=== PATIENT | female | born 1965 | race Hispanic/Latino ===

== ENCOUNTER 2019-09-02 06:11 | Emergency (ER) | payer OTHER, SELFPAY ==
--- OUTSIDE RECORDS SUMMARY | 2019-09-02 06:15 | XMS REPORT ---
:1965 Author Organization eClinicalWorks Care Team Providers Name Role Phone Kayla Erwin Provider Role Unavailable Allergies No Known Allergies Problems Problem Type Condition Code Onset Dates Condition Status Problem Gastroesophageal reflux disease, K21.9 Active esophagitis presence not specified Problem Diverticulosis K57.90 Active Problem Prediabetes R73.03 Active Problem Gastroparesis K31.84 Active Problem Gallstones K80.20 Active Problem Hypercholesterolemia E78.00 Active Problem Reflux K21.9 Active Problem Abdominal cramping R10.9 Active Problem Acute gastroenteritis K52.9 Active Problem Irritable bowel K58.9 Active Problem Cancer C80.1 Active Medications No Known Medications Results No Known Results Summary Purpose eClinicalWorks Submission
--- OUTSIDE RECORDS SUMMARY | 2019-09-02 06:15 | XMS REPORT ---
:1965 [facility] Address [address] [place] [address] Dr. León [address] [place] [id number] Care Team Providers Name Role Phone Unavailable Unavailable Unavailable Problems This patient has no known problems. Allergies, Adverse Reactions, Alerts This patient has no known allergies or adverse reactions. Medications This patient has no known medications.
--- OUTSIDE RECORDS SUMMARY | 2019-09-02 06:15 | XMS REPORT | Continuity of Care Document ---
:1965 Author Organization [facility] Address [address] [place] [address] Phone Care Team Providers Name Role Phone Gaby Bridges Unavailable Unavailable Allergies, Adverse Reactions, Alerts Substance Reaction Status No Known Allergies Active Medications Medication Instructions Dosage Effective Dates Status Comments (start - stop) mupirocin 2 % apply by topical 0.00 - Active [Pat Resp=20 topical ointment route 3 times every pct;] day a small amount to the affected area Problems Condition Effective Dates (start - stop) Clinical Status Comments No information Procedures Procedure Date No information Results Test Name Date and Time Measure Units Reference Range Abnormal Flag Status Comments No information Advance Directives Directive Yes / No Effective Date File Name No information Encounters Encounter Practice Location Reason(s) Diagnoses Date Provider Providers Description For Visit Copied on Encounter [facility] Aug- Fabio Referring Health & [facility] Gaby. Provider: Wellness, Health & [address] Gaby [address] Shoshana Reyes, Julia Wilson [address] [place], [facility] C, [place] [id number] [facility] C, tel:+ [phone] [place] [id number] . [place], [place], tel:+ [phone] tel:[phone] [facility] Body mass index (BMI) Fabio Referring [facility] & [facility] 26.0-26.9, Gaby. Provider: Wellness, Health & adultOnychomycosisOta [address] Gaby [address] lgiaEncounter for Lobo Mccarthy [address], [facility] [place] [address] [place] [address] [place], [address], [place] [id number] [facility] , [place], [place], [address], tel:+ [phone] [place] [id number] . [place], [place], tel:+ [phone] tel:[phone] [facility] TC Acute upper Feb-2 Health & [place] [facility] [address]-201 Wellness, Health & infection, [address], [place], [place], [id number] , tel:+ [phone] Family History Family Member Diagnosis Age At Onset Family history of Cancer, prostate Family history of Cancer, kidney Immunizations Vaccine Date Status Comments Zoster recombinant subunit, pending Source: New Immunization Record preservative free Payers Payer name Insurance type Covered republican ID Authorization(s) No information Social History Type Description Quantity Date Captured Comments Sex Female Vital Signs Date / Height Weight BMI Pulse Blood Temperature Respiratory Body Head BMI Pulse Inhaled Time: Rate Pressure Rate Surface Circumference percentile Ox Ox Area No information Chief Complaint And Reason For Visit No information Reason For Referral Reason For Referral No information Plan Of Treatment Date Type Action Status Goal Lifestyle education regarding diet completed Referral Ordered: ordered Referrals: Podiatry. Evaluate and treat Unknown Immunization Zoster recombinant subunit, preservative free ordered History Of Present Illness Encounter Date Complaint History Of Present Illness No information Functional Status Date Functional Assessment No information Medications Administered Medication Instructions Dosage Effective Dates (start - stop) Status Comments No information Instructions Date Instruction Additional Information Keep area clean and dry Rx for topical Related to Rash mupirocin ointment prn Shingrix ordered Related to Encounter for immunization pt instructed to take OTC Related to Otalgia antiinflammatories and RTC if the pain worsens compliant with LSMpt instructed to Related to Body mass index ( BMI) reschedule WWE to update pap smear 26.0-26.9, adult pt referred to podiatry for management Related to Onychomycosis of longstanding onychomycosisRx for topical mupirocin ointment to prevent secondary infection Giving encouragement to exercise Related to Body mass index (BMI) 26.0-26.9, adult Lifestyle education regarding diet Related to Body mass index ( BMI) 26.0-26.9, adult Pt instructed to make appt for Related to Acute upper WWEDiscussed safe otc options for respiratory infection, medication, caution with unspecified sleepinessDiscussed w pt risks w unnecessary abx, need to avoid Assessments Type Assessment Date No information Goals Health Concern Goal Type Priority Status Date No information Medical Equipment Description Device [place] Device Identifier Effective Dates (start - stop ) Status No information Mental Status Date Cognitive Assessment No information Health Concerns Observation Date No information Concern Status Date No information
--- OUTSIDE RECORDS SUMMARY | 2019-09-02 06:15 | XMS REPORT ---
:1965 Author Organization eClinicalWorks Care Team Providers Name Role Phone Kayla Erwin Provider Role Unavailable Allergies, Adverse Reactions, Alerts Substance Reaction Event Type Garlic Info Not Available Drug Allergy Problems Problem Type Condition Code Onset Dates Condition Status Problem Gastroesophageal reflux disease, K21.9 Active esophagitis presence not specified Problem Diverticulosis K57.90 Active Problem Prediabetes R73.03 Active Assessment Abdominal cramping R10.9 Active Assessment Acute gastroenteritis K52.9 Active Problem Gastroparesis K31.84 Active Problem Gallstones K80.20 Active Problem Hypercholesterolemia E78.00 Active Problem Reflux K21.9 Active Problem Abdominal cramping R10.9 Active Problem Acute gastroenteritis K52.9 Active Problem Irritable bowel K58.9 Active Problem Cancer C80.1 Active Medications Medication Code Code Instructions Start End Status Dosage System Date Date Dicyclomine HCl [facility] 92446371292 20 MG Orally Jan 31Feb Active 1 tablet Four times a 2018 09, day as needed 2018 for stomach cramping/pain Nexium [facility] [address]-12 Orally as Active 1 capsule directed prn Results No Known Results Summary Purpose eClinicalWorks Submission
--- OUTSIDE RECORDS SUMMARY | 2019-09-02 06:15 | XMS REPORT | Continuity of Care Document ---
:1965 Author Organization [facility] Address [address] [place] [address] Phone Care Team Providers Name Role Phone [...] Status Comments No information Procedures Procedure Date Established Patient Office Visit-Level Four Results Test Name Date and Time Measure Units Reference Range Abnormal Flag Status Comments No information Advance Directives Directive Yes / No Effective Date File Name No information Encounters Encounter Practice Location Reason(s) Diagnoses Date Provider Providers Description For Visit Copied on Encounter Established [facility] TC Ear Body mass index Jun- Fabio Referring Patient [facility] & [facility] complaints (BMI) 26.0-26.9, Gaby. Provider: Office Wellness, Health & (chief adultOnychomycosisOt [address] Gaby Visit-Level [address] Wellness complaint)T algiaEncounter for Lobo Mccarthy, [address], [facility] [place] [address] [place], (Lobo Cohn [place], complaint)[address] [id number] alexis (chief [facility] complaint) [place], [place], [address], tel:+ [phone] [place] [id number] . [place], [place], tel:+ [phone]. [phone] tel:[phone] [facility] Acute upper Feb-2 Health & [place] respiratory 6-201 Wellness, Health & infection, 8 [address], [place], [id number] , tel:[phone] Family History Family Member Diagnosis Age At Onset Family history of Cancer, prostate Family history of Cancer, kidney Immunizations Vaccine Date Status Comments Zoster recombinant subunit, pending Source: New Immunization Record preservative free Payers Payer name Insurance type Covered democrat ID Authorization(s) No information Social History Type Description Quantity Date Captured Comments Alcohol Use Details beer & liquor 2 beers occasionally Caffeine Use coffee 2 cups per day Details Tobacco Use Status Heavy cigarette smoker (20-39 cigs/day) Smoking Status Heavy tobacco smoker Smoking Tobacco Use Cigarette: No Details Available Cigarette: 1 Packs per day Details Sex Female Vital Signs Date / Height Weight BMI Pulse Blood Temperature Respiratory Body Head BMI Pulse Inhaled Time: Rate Pressure Rate Surface Circumference percentile Ox Ox Area 66.00 164.00 26.4 81 117/76 97.1 F 16 /min 1.86 in lbs 7 /min mm[Hg] meter(2) 3:31 kg/m PM eter (2) Chief Complaint And Reason For Visit Most recent encounter only, dated '06/24/2019 15:00'. Ear complaints ( chief complaint). Description: The symptoms began 1 day ago. The symptoms are reported as being moderate. She states the symptoms are acute. Pt states that in the car today she experienced a shooting pain starting from her R tragus to about an inch anterior to that. Pain is associated with swallowing. She denies any ear popping. She denies any prior episodes, but states that she clenches her teeth at night.Toe fungus (chief complaint). Description: The symptoms began 2 years ago. The symptoms are reportedas being moderate. The symptoms occur constantly. The location is bilateral feet, worse on R. She states the symptoms are chronic. Pt states she has had onychomycosis x 2 years. She has tried a prescription lotion, kerasal, and bleach water, and an additional prescription she got from her sister (cannot recall the name). She endorses some swelling over the great toe and intermittent blistering just proximal to the nail. She has been given a 5 day course of abx in the past for an infected blister. Another physician was going to start her on an oral medication but she has not obtained the LFTs yet.Rash (chief complaint). Description: The patient presents for Rash. The symptom(s) are described as moderate and occurs occasionally. Affected area(s) include left thigh. The symptoms are associated with stress. Associated symptoms include painful rash. Additional information: wants vaccinePt states she has had intermittent episodes of shingles, the first being 7 years ago. Outbreaks are associated with stress. The rash appears over the posterior aspect of her L thigh. The current outbreak began 5 days ago and is now scabbing over. She reports associated pain. Reason For Referral Reason For Referral No information Plan Of Treatment Date Type Action Status Goal Lifestyle education regarding diet completed Referral Ordered: ordered Podiatry (related to Onychomycosis) Referral Ordered: ordered Referrals: Podiatry. Evaluate and treat Appointment Brianda Zurita BOOKED Appointment Brianda Zurita BOOKED Unknown Immunization Zoster recombinant subunit, preservative free ordered History Of Present Illness Encounter Date Complaint History Of Present Illness Toe fungus The symptoms began 2 years ago. The symptoms are reported as being moderate. The symptoms occur constantly. The location is bilateral feet, worse on R. She states the symptoms are chronic. Pt states she has had onychomycosis x 2 years. She has tried a prescription lotion, kerasal, and bleach water, and an additional prescription she got from her sister (cannot recall the name). She endorses some swelling over the great toe and intermittent blistering just proximal to the nail. She has been given a 5 day course of abx in the past for an infected blister. Another physician was going to start her on an oral medication but she has not obtained the LFTs yet. Ear complaints The symptoms began 1 day ago. The symptoms are reported as being moderate. She states the symptoms are acute. Pt states that in the car today she experienced a shooting pain starting from her R tragus to about an inch anterior to that. Pain is associated with swallowing. She denies any ear popping. She denies any prior episodes, but states that she clenches her teeth at night. Rash The patient presents for Rash. The symptom(s) are described as moderate and occurs occasionally. Affected area(s) include left thigh. The symptoms are associated with stress. Associated symptoms include painful rash. Additional information: wants vaccinePt states she has had intermittent episodes of shingles, the first being 7 years ago. Outbreaks are associated with stress. The rash appears over the posterior aspect of her L thigh. The current outbreak began 5 days ago and is now scabbing over. She reports associated pain. Functional Status Date Functional Assessment No information [...] need to avoid Assessments Type Assessment Date assessment Body mass index (BMI) 26.0-26.9, adult assessment Onychomycosis impression pt has tried many different topical medications without 2019 success assessment Otalgia assessment Encounter for immunization assessment Rash impression PE unremarkable impression pt has healing rash on posterior leg she believes to be 2019 shingles; PE does not reveal usual presentation for shingles Goals Health Concern Goal Type Priority Status Date No information Medical Equipment Description Device [place] Device Identifier Effective Dates (start - stop ) Status No information Mental Status Date Cognitive Assessment Orientation - Oriented to time, place, person, situation. Health Concerns Observation Date No information Concern Status Date No information
--- OUTSIDE RECORDS SUMMARY | 2019-09-02 06:15 | XMS REPORT ---
:1965 Author Organization eClinicalWorks Care Team Providers Name Role Phone Kelsy Sands Provider Role Unavailable Allergies, Adverse Reactions, Alerts Substance Reaction Event Type Garlic Info Not Available Drug Allergy Problems Problem Type Condition Code Onset Dates Condition Status Problem Gastroesophageal reflux disease, K21.9 Active esophagitis presence not specified Problem Diverticulosis K57.90 Active Problem Prediabetes R73.03 Active Assessment Viral upper respiratory illness J06.9 Active Assessment Cough R05 Active Problem Gastroparesis K31.84 Active Problem Gallstones K80.20 Active Problem Hypercholesterolemia E78.00 Active Problem Reflux K21.9 Active Problem Abdominal cramping R10.9 Active Problem Acute gastroenteritis K52.9 Active Problem Irritable bowel K58.9 Active Problem Cancer C80.1 Active Medications Medication Code Code Instructions Start End Date Status Dosage System Date Bactrim DS [facility] 48762779976 800-160 MG August 17, Active 1 tablet Orally Twice a 2020 day for 10 days Nexium [facility] [address]-12 Orally as Active 1 capsule directed prn Results No Known Results Summary Purpose eClinicalWorks Submission
[2019-09-02 07:13] LABS: Absolute Lymphocytes (CBC) 1.8 K/uL (0.7-4.9); Basophils % 0.5 % (0-1.3); Hematocrit 31.6 % (36.0-45.0); Lymphocytes % 14.2 % (15.3-44.8); MPV 8.6 fL (7.6-11.3); RBC Red Blood Cell Count 3.68 M/uL (3.86-4.86)
[2019-09-02 07:29] LABS: Potassium 3.9 mmol/L (3.5-5.1)
[2019-09-02 07:39] LABS: Urine Bacteria <20 /HPF (<20); Urine Culture Reflex Order REFLEXED
--- NOTE | 2019-09-02 08:06 | RAD REPORT ---
EXAM DESCRIPTION: CT - Abdomen Pelvis W Contrast - 09/02/2019 7:53 am CLINICAL HISTORY: Abdominal pain COMPARISON: none. TECHNIQUE: Computed axial tomography of the abdomen pelvis was obtained. 100 cc Isovue-300 was admin istered intravenously. Oral contrast was not requested which limits evaluation of bowel. All CT scans are performed using dose optimization technique as appropriate and may include automated exposure control or mA/KV adjustment according to patient size. FINDINGS: The liver, spleen, pancreas, adrenal and right kidney appear unremarkable. 4 centimeter low to intermediate density area present within the upper pole left kidney reaching the periphery. This likely represents pyelonephritis. Cholecystectomy Hysterectomy There is no evidence of diverticulitis. Small hiatal hernia IMPRESSION: Mild to moderate left pyelonephritis
--- NOTE | 2019-09-02 08:17 | ER ---
Nurse's Notes [facility] Name: Brianda Zurita Age: 54 yrs Sex: Female : 1965 Arrival Date: 09/02/2019 Time: 06:15 Bed 17 Private MD: Diagnosis: Acute tubulo-interstitial nephritis Presentation: 09/01 06:34 Chief complaint: Patient states: i think i have kidney infection. i have abdominal mg2 pain, loss of appetite, nausea for 2 weeks. i was tested for covid 19 last and it came out negative. i was already treated with bactrim but im not improving. i also have fever yesterday 100.7. 06:34 Method Of Arrival: Ambulatory mg2 06:36 Coronavirus screen: Patient denies a cough. Patient denies shortness of breath or mg2 difficulty breathing. Patient reports a measured and/or subjective temperature greater than 100.4F. Patient denies travel on a cruise ship or to a country the [facility] currently lists as an affected area. Ebola Screen: No symptoms or risks identified at this time. Initial Sepsis Screen: Does the patient meet any 2 criteria? No. Patient's initial sepsis screen is negative. Does the patient have a suspected source of infection? No. Patient's initial sepsis screen is negative. Risk Assessment: Do you want to hurt yourself or someone else? Patient reports no desire to harm self or others. 06:36 Acuity: MUSHTAQ 3 mg2 06:52 Onset of symptoms was August 2019. 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 - Social history:: Smoking status: Patient denies any tobacco usage or history of. Patient/guardian denies using alcohol, street drugs, IV drugs. Screenin:52 Abuse screen: Denies threats or abuse. Denies injuries from another. Nutritional mg2 screening: No deficits noted. Tuberculosis screening: No symptoms or risk factors identified. Fall Risk IV access (20 points). Assessment: 06:50 General: Appears in no apparent distress. comfortable, Behavior is calm, appropriate mg2 for age. Pain: Complains of pain in abdomen Pain currently is 7 out of 10 on a pain scale. Quality of pain is described as aching, Pain began gradually, 2 weeks now. Neuro: Level of Consciousness is awake, alert, obeys commands, Oriented to person, place, time, situation. Cardiovascular: Capillary refill < 3 seconds Patient's skin is warm and dry. Respiratory: Airway is patent Respiratory effort is even, unlabored, Respiratory pattern is regular, symmetrical. GI: Reports lower abdominal pain, nausea, loss of appetite. : No signs and/or symptoms were reported regarding the genitourinary system. EENT: No signs and/or symptoms were reported regarding the EENT system. Derm: Skin is intact, is healthy with good turgor, Skin is pink, warm \T\ dry. normal. Musculoskeletal: Circulation, motion, and sensation intact. Capillary refill < 3 seconds. 07:15 General: Appears in no apparent distress. comfortable, Behavior is calm, cooperative. rb1 Pain: Complains of pain in abdomen Pain currently is 7 out of 10 on a pain scale. Neuro: Level of Consciousness is awake, alert, obeys commands, Oriented to person, place, time, situation. Cardiovascular: Capillary refill < 3 seconds is brisk in bilateral fingers. Respiratory: Airway is patent Respiratory effort is even, unlabored, Respiratory pattern is regular, symmetrical. Derm: Skin is pink, warm \T\ dry. 08:15 Reassessment: Patient appears in no apparent distress at this time. Pt. is on her rb1 telephone. 08:33 Reassessment: Discharge pending due to shot time. rb1 08:54 Reassessment: Patient appears in no apparent distress at this time. Patient and/or rb1 family updated on plan of care and expected duration. Pain level reassessed. Patient is alert, oriented x 3, equal unlabored respirations, skin warm/dry/pink. no adverse reaction noted at this time. Vital Signs: 06:36 BP 136 / 79; Pulse 94; Resp 18; Temp 97.7; Pulse Ox 100% on R/A; Weight 68.04 kg; mg2 Height 5 ft. 6 in. (167.64 cm); Pain 7/10; 07:35 BP 95 / 62; Pulse 64; Resp 17; Pulse Ox 96% on R/A; rb1 08:35 BP 111 / 69; Pulse 73; Resp 16; Pulse Ox 100% on R/A; rb1 06:36 Body Mass Index 24.21 (68.04 kg, 167.64 cm) mg2 ED Course: 06:15 Patient arrived in ED. ds1 06:17 [facility] Mad[facility] kb 06:17 Nba Yanes MD is Attending Physician. kb 06:19 Mckay Cagle, RN is Primary Nurse. mg2 06:38 Triage completed. mg2 06:38 Arm band placed on. mg2 06:52 Patient has correct armband on for positive identification. Pulse ox on. NIBP on. Door mg2 closed. Warm blanket given. 06:52 No provider procedures requiring assistance completed. Inserted saline lock: 20 gauge mg2 in left antecubital area, using aseptic technique. Blood collected. 07:54 CT Abd/Pelvis - IV Contrast Only In Process Unspecified. EDMS 08:55 IV discontinued, intact, bleeding controlled, No redness/swelling at site. Pressure rb1 dressing applied. Administered Medications: 08:16 CANCELLED (Duplicate Order): Rocephin 1 grams IV at calculated rate once; Given slow IV kb push per pharmacy instructions 08:22 Drug: Rocephin 1 grams Route: IV; Rate: calculated rate; Site: left antecubital; rb1 08:46 Follow up: Response: No adverse reaction; IV Status: Completed infusion rb1 Outcome: 08:17 Discharge ordered by . kb 08:55 Discharged to home ambulatory. rb1 08:55 Condition: stable 08:55 Discharge instructions given to patient, Instructed on discharge instructions, follow up and referral plans. medication usage, Demonstrated understanding of instructions, follow-up care, medications, Prescriptions given X 1. 08:56 Patient left the ED. rb1 Signatures: Dispatcher [employer] EDMS Clau Madera FNP-C [facility]-Wendy Harris ds1 Colleen Shoemaker, RN RN rb1 Mckay Cagle, NUVIA RN mg2 Corrections: (The following items were deleted from the chart) 06:39 06:34 Chief complaint: Patient states: i think i have kidney infection. i have mg2 abdominal pain, loss of appetite, nausea for 2 weeks. i was tested for covid 19 last and it came out negative. i was already treated with bactrim but im not improving. mg2 06:39 06:36 Coronavirus screen: Patient denies a cough. Patient denies shortness of breath or mg2 difficulty breathing. Patient reports a measured and/or subjective temperature greater than 100.4F. Patient denies travel on a cruise ship or to a country the [facility] currently lists as an affected area. mg2
--- NOTE | 2019-09-02 08:18 | EDPHYS ---
Physician Documentation [facility] Name: Brianda Zurita Age: 54 yrs Sex: Female : 1965 Arrival Date: 09/02/2019 Time: 06:15 Bed 17 Private MD: ED Physician Nba Yanes HPI: 09/01 06:56 This 54 yrs old Female presents to ER via Ambulatory with complaints of Fever, kb Body Aches. 06:56 The patient or guardian reports cough, that is intermittent, described as mild, flu kb symptoms, low-grade fever, myalgias, no appetite. Onset: The symptoms/episode began/occurred 3 week(s) ago. Severity of symptoms: At their worst the symptoms were mild, moderate, in the emergency department the symptoms are unchanged. Modifying factors: The symptoms are alleviated by nothing, the symptoms are aggravated by nothing. Associated signs and symptoms: Pertinent positives: fever, Pertinent negatives: chest pain, diarrhea, ear ache, nausea, rhinorrhea, sore throat, vomiting. The patient has not experienced similar symptoms in the past. The patient has been recently seen by a physician:. Pt reports she has had body aches, decreased appetite, fever, slight cough (not out of normal for her), suprapubic pain for 3 weeks. Completed a course of bactrim at the beginning for UTI, but never got better. Was seen by Dr Erwin and tested negative for flu and COVID, but still not feeling well. . HIDE PASTER: 06:53 LMP N/A - Hysterectomy mg2 Historical: - Allergies: 06:40 No Known Allergies; mg2 - Home Meds: 06:40 Nexium Oral [Active]; mg2 - PMHx: 06:40 GERD; uterine ca; mg2 - PSHx: 06:40 Cholecystectomy; Hysterectomy; mg2 - Immunization history:: Flu vaccine is up to date. - Social history:: Smoking status: Patient denies any tobacco usage or history of. Patient/guardian denies using alcohol, street drugs, IV drugs. ROS: 06:53 ENT: Negative for injury, pain, and discharge, Neck: Negative for injury, pain, and kb swelling, Cardiovascular: Negative for chest pain, palpitations, and edema, Back: Negative for injury and pain, MS/Extremity: Negative for injury and deformity, Skin: Negative for injury, rash, and discoloration, Neuro: Negative for headache, weakness, numbness, tingling, and seizure. 06:53 Constitutional: Positive for body aches, chills, fatigue, fever, malaise, Negative for poor PO intake, weight loss. 06:53 Respiratory: Positive for cough, Negative for dyspnea on exertion, hemoptysis, orthopnea, pleurisy, shortness of breath, sputum production, wheezing. 06:53 Abdomen/GI: Positive for abdominal pain, Negative for nausea, vomiting, and diarrhea, constipation, abdominal cramps, abdominal distension, anorexia. Exam: 06:55 Constitutional: This is a well developed, well nourished patient who is awake, alert, kb and in no acute distress. Head/Face: Normocephalic, atraumatic. ENT: Nares patent. No nasal discharge, no septal abnormalities noted. Tympanic membranes are normal and external auditory canals are clear. Oropharynx with no redness, swelling, or masses, exudates, or evidence of obstruction, uvula midline. Mucous membranes moist. Neck: Trachea midline, no thyromegaly or masses palpated, and no cervical lymphadenopathy. Supple, full range of motion without nuchal rigidity, or vertebral point tenderness. No Meningismus. Chest/axilla: Normal chest wall appearance and motion. Nontender with no deformity. No lesions are appreciated. Cardiovascular: Regular rate and rhythm with a normal S1 and S2. No gallops, murmurs, or rubs. Normal PMI, no JVD. No pulse deficits. Respiratory: Lungs have equal breath sounds bilaterally, clear to auscultation and percussion. No rales, rhonchi or wheezes noted. No increased work of breathing, no retractions or nasal flaring. Abdomen/GI: Soft, non-tender, with normal bowel sounds. No distension or tympany. No guarding or rebound. No evidence of tenderness throughout. Back: No spinal tenderness. No costovertebral tenderness. Full range of motion. Skin: Warm, dry with normal turgor. Normal color with no rashes, no lesions, and no evidence of cellulitis. MS/ Extremity: Pulses equal, no cyanosis. Neurovascular intact. Full, normal range of motion. Neuro: Awake and alert, GCS 15, oriented to person, place, time, and situation. Cranial nerves II-XII grossly intact. Motor strength 5/5 in all extremities. Sensory grossly intact. Cerebellar exam normal. Normal gait. Vital Signs: 06:36 BP 136 / 79; Pulse 94; Resp 18; Temp 97.7; Pulse Ox 100% on R/A; Weight 68.04 kg; mg2 Height 5 ft. 6 in. (167.64 cm); Pain 7/10; 07:35 BP 95 / 62; Pulse 64; Resp 17; Pulse Ox 96% on R/A; rb1 08:35 BP 111 / 69; Pulse 73; Resp 16; Pulse Ox 100% on R/A; rb1 06:36 Body Mass Index 24.21 (68.04 kg, 167.64 cm) mg2 MDM: 06:19 Patient medically screened. kb 06:53 Data reviewed: vital signs, nurses notes. Data interpreted: Pulse oximetry: on room air kb is 100 %. Interpretation: normal. 08:16 Counseling: I had a detailed discussion with the patient and/or guardian regarding: the kb historical points, exam findings, and any diagnostic results supporting the discharge/admit diagnosis, lab results, radiology results, the need for outpatient follow up, a family practitioner, to return to the emergency department if symptoms worsen or persist or if there are any questions or concerns that arise at home. 09/01 06:32 Order name: Flu; Complete Time: 07:33 kb 09/01 06:32 Order name: Basic Metabolic Panel; Complete Time: 07:33 kb 09/01 06:32 Order name: CBC with Diff; Complete Time: 07:25 kb 09/01 06:32 Order name: [place] Screen Profile; Complete Time: 07:28 kb 09/01 06:32 Order name: Urine Microscopic Only; Complete Time: 07:41 kb 09/01 06:33 Order name: Urine Dipstick--Ancillary (enter results) mw2 09/01 06:32 Order name: IV Saline Lock; Complete Time: 06:50 kb 09/01 06:32 Order name: Labs collected and sent; Complete Time: 06:50 kb 09/01 07:34 Order name: CT Abd/Pelvis - IV Contrast Only; Complete Time: 08:15 kb 09/01 07:41 Order name: Urine Culture EDMS Administered Medications: 08:16 CANCELLED (Duplicate Order): Rocephin 1 grams IV at calculated rate once; Given slow IV kb push per pharmacy instructions 08:22 Drug: Rocephin 1 grams Route: IV; Rate: calculated rate; Site: left antecubital; rb1 08:46 Follow up: Response: No adverse reaction; IV Status: Completed infusion rb1 Disposition: 09/02 05:01 Co-signature as Attending Physician, Nba Yanes MD I agree with the assessment and tw4 plan of care. Disposition: 09/02/19 08:17 Discharged to Home. Impression: Acute tubulo-interstitial nephritis. - Condition is Stable. - Discharge Instructions: Pyelonephritis, Adult, [id number]. - Prescriptions for cefpodoxime 200 mg Oral Tablet - take 1 tablet by ORAL route every 12 hours for 10 days with food; 20 tablet. - Medication Reconciliation Form, Thank You Letter, Antibiotic Education, Prescription Opioid Use form. - Follow up: Emergency Department; When: As needed; Reason: Worsening of condition. Follow up: Private Physician; When: 2 - 3 days; Reason: Recheck today's complaints, Continuance of care, Re-evaluation by your physician. Signatures: Dispatcher [employer] EDClau De Jesus, NET SOFTWARE ARCHITECT-C NET SOFTWARE ARCHITECT-CkColleen Ye, RN RN rb1 Nba Yanes MD MD tw4 Mckay Cagle RN RN mg2 Corrections: (The following items were deleted from the chart) 09/01 08:16 08:16 Rocephin 1 grams IV at calculated rate once; Given slow IV push per pharmacy kb instructions ordered. kb 08:56 08:17 09/02/2019 08:17 Discharged to Home. Impression: Acute tubulo-interstitial rb1 nephritis. Condition is Stable. Forms are Medication Reconciliation Form, Thank You Letter, Antibiotic Education, Prescription Opioid Use. Follow up: Emergency Department; When: As needed; Reason: Worsening of condition. Follow up: Private Physician; When: 2 - 3 days; Reason: Recheck today's complaints, Continuance of care, Re-evaluation by your physician. kb
[2019-09-02] MEDS ORDERED: CEFTRIAXONE/SWI 1gm 1 GM/10 ML SYR ONE (08:28)
[2019-09-02 09:01] VITALS: TEMP 97.7
[2019-09-02 09:06] VITALS: BP 111/69; O2SAT 100
[2019-09-02 12:54] LABS: Urine Blood 2+ (NEG); Urine Glucose NEGATIVE (NEG); Urine Protein NEGATIVE (NEG)
== END 2019-09-02 08:56 | disposition home or self-care (01) ==
LOC: ER 06:11
DX: N10 Acute pyelonephritis (principal); K21.9 Gastro-esophageal reflux disease without esophagitis
CPT/HCPCS: 36415; 74177; 80048; 81003; 81015; 85025; 86308; 87086; 87088; 87804; 96365; 99284; J0696; Q9967

== ENCOUNTER 2024-01-13 16:48 | Emergency (ER) | payer BC ==
--- OUTSIDE RECORDS SUMMARY | 2024-01-13 16:53 | XMS REPORT | Continuity of Care Document ---
Author Name Unknown Address [address] [facility] [address] [place] [address] [facility] Address [address] [facility] [address] [place] [address] Care Team Providers Care Clerk Operator Name Role Phone Siva Salcido. Primary Care Physici an Unavailable Kayla Hardin Attending Clinician Unavaila April Dunne Attending Clinician Unavailable Ludin Joe) Attending Clinician Unavaila RONEL Nava Attending Clinician UnaADRIANNE Jefferson Attending Clinician Unavailable LAURA PLASCENCIA Attending Clinician Unavailab lizzie GC_BCSS_Heath_Sandee Attending Clinician Unavaila Alma Duron Attending Clinician Unavailable GC_BVWC_Sedrick Attending Clinician Unavailable DON JOSHI Attending Clinician Unavailabl e LAB90 Attending Clinician Unavailable Shaista ZHAO, Ronel Bullock Attending Clinician [phone] Arnie Smith Attending Clinician Unavailable Gaby Mccarthy Attending Clinician Unavailable April Acosta Admitting Clinician Unavailable Ludin Joe) Admitting Clinician Unavaila mustapha GC_BCSS_Heath_Dan1 Admitting Clinician Unavaila mustapha GC_BVWC_[facility]_J Admitting Clinician Unavailable Payers Payer Name Policy Type Policy Number Effective Date Expirati on Date Source [place] 4 [id number] 2022 00:00[place] [id number] 2022 00:00:00 PHCS-IMAGINE 360 2 [id number] 2022 00:00:00 [place] [place]UE[place] - OPEN ACCESS [id number] 2022 00:00:00 2022 00:00:00 MULTIPLAN-GPA/PPO 2 [id number] 2021 00:00:00 Problems Condition Name Condition Details Condition Category Status Onset Date Resolution Date Last Treatment Date Treating Clinician Comments Source Abdominal pain Abdominal Pain Problem Active 10-15 00:00: 00 [facility] Vesicocoli c fistula Vesicocoli c Fistula Problem Active 10-15 00:00: 00 [facility] Hyperchole sterolemia Hyperchole sterolemia Problem Active [facility] Irritable bowel Irritable bowel Problem Active [facility] Cancer Cancer Problem Active [facility] Reflux Reflux Problem Active [facility] Diverticul osis Diverticul osis Problem Active [facility] Prediabete s Prediabete s Problem Active [facility] Abdominal cramping Abdominal cramping Problem Active [facility] Acute gastroente ritis Acute gastroente ritis Problem Active [facility] Gastropare sis Gastropare sis Problem Active [facility] Gallstones Gallstones Problem Active [facility] Allergies, Adverse Reactions, Alerts Allergy Name Allergy Type Status Severity Reaction(s) Onset Date Inactive Date Treating Clinician Comments Source Garlic Adverse Reaction Active Info Not Available [facility] Social History Social Habit Start Date Stop Date Quantity Comments Source Sex Assigned At 1965 00:00:00 1965 00:00:00 Female Salima [facility] Smoking Status Start Date Stop Date Source Unknown if ever smoked Marlena on [facility] Medications Ordered Medication Name Filled Medication Name Start Date Stop Date Current Medication? Ordering Clinician Indication Dosage Frequency Signature (SIG) Comments Components Source Bactrim DS Bactrim DS 3-16 00:00: 00 Yes Kelsy Sands 1 tablet [facility] ciprofloxac in 500 mg tablet TAKE 1 TABLET BY MOUTH TWICE DAILY ciprofloxac in 500 mg tablet TAKE 1 TABLET BY MOUTH TWICE DAILY No ciprofloxa josé miguel 500 mg tablet TAKE 1 TABLET BY MOUTH TWICE DAILY [facility] diclofenac 1 % topical gel diclofenac 1 % topical gel No diclofenac 1 % topical gel [facility] diclofenac sodium 75 mg tablet,tristen yed release diclofenac sodium 75 mg tablet,tristen yed release No diclofenac sodium 75 mg tablet,del ayed release [facility] methylpredn isolone 4 mg tablets in a dose pack FOLLOW PACKAGE DIRECTIONS methylpredn isolone 4 mg tablets in a dose pack FOLLOW PACKAGE DIRECTIONS No methylpred nisolone 4 mg tablets in a dose pack FOLLOW PACKAGE DIRECTIONS [facility] ondansetron HCl 4 mg tablet ondansetron HCl 4 mg tablet No ondansetro n HCl 4 mg tablet [facility] phenazopyri dine 200 mg tablet TAKE 1 TABLET BY MOUTH EVERY 8 HOURS NEEDED FOR URINARY PROBLEMS FOR 3 DAYS phenazopyri dine 200 mg tablet TAKE 1 TABLET BY MOUTH EVERY 8 HOURS NEEDED FOR URINARY PROBLEMS FOR 3 DAYS No phenazopyr idine 200 mg tablet TAKE 1 TABLET BY MOUTH EVERY 8 HOURS NEEDED FOR URINARY PROBLEMS FOR 3 DAYS [facility] sulfamethox azole 800 mg-trimetho prim 160 mg tablet TAKE 1 TABLET BY MOUTH EVERY DAY BEFORE INTERCOURSE sulfamethox azole 800 mg-trimetho prim 160 mg tablet TAKE 1 TABLET BY MOUTH EVERY DAY BEFORE INTERCOURSE No sulfametho xazole 800 mg-trimeth oprim 160 mg tablet TAKE 1 TABLET BY MOUTH EVERY DAY BEFORE INTERCOURS E [facility] albuterol sulfate HFA 90 mcg/actuati on aerosol inhaler INHALE 2 PUFFS INTO THE LUNGS EVERY 4 HOURS NEEDED FOR WHEEZING albuterol sulfate HFA 90 mcg/actuati on aerosol inhaler INHALE 2 PUFFS INTO THE LUNGS EVERY 4 HOURS NEEDED FOR WHEEZING No albuterol sulfate HFA 90 mcg/actuat ion aerosol inhaler INHALE 2 PUFFS INTO THE LUNGS EVERY 4 HOURS NEEDED FOR WHEEZING [facility] amoxicillin 500 mg-potassiu m clavulanate 125 mg tablet TAKE 1 TABLET BY MOUTH TWICE DAILY amoxicillin 500 mg-potassiu m clavulanate 125 mg tablet TAKE 1 TABLET BY MOUTH TWICE DAILY No amoxicilli n 500 mg-potassi um clavulanat e 125 mg tablet TAKE 1 TABLET BY MOUTH TWICE DAILY [facility] amoxicillin 875 mg-potassiu m clavulanate 125 mg tablet TAKE 1 TABLET BY MOUTH EVERY 12 HOURS FOR 10 DAYS amoxicillin 875 mg-potassiu m clavulanate 125 mg tablet TAKE 1 TABLET BY MOUTH EVERY 12 HOURS FOR 10 DAYS No amoxicilli n 875 mg-potassi um clavulanat e 125 mg tablet TAKE 1 TABLET BY MOUTH EVERY 12 HOURS FOR 10 DAYS [facility] azithromyci n 250 mg tablet TAKE 2 TABLETS BY MOUTH FOR 1 DAY THEN TAKE 1 TABLET BY MOUTH DAILY FOR 4 DAYS THEREAFTER azithromyci n 250 mg tablet TAKE 2 TABLETS BY MOUTH FOR 1 DAY THEN TAKE 1 TABLET BY MOUTH DAILY FOR 4 DAYS THEREAFTER No azithromyc in 250 mg tablet TAKE 2 TABLETS BY MOUTH FOR 1 DAY THEN TAKE 1 TABLET BY MOUTH DAILY FOR 4 DAYS THEREAFTER [facility] benzonatate 100 mg capsule TAKE 1 CAPSULE BY MOUTH EVERY 8 HOURS NEEDED FOR COUGH benzonatate 100 mg capsule TAKE 1 CAPSULE BY MOUTH EVERY 8 HOURS NEEDED FOR COUGH No benzonatat e 100 mg capsule TAKE 1 CAPSULE BY MOUTH EVERY 8 HOURS NEEDED FOR COUGH [facility] BinaxNOW COVID-19 Ag Self Test kit TEST DIRECTED TODAY BinaxNOW COVID-19 Ag Self Test kit TEST DIRECTED TODAY No BinaxNOW COVID-19 Ag Self Test kit TEST DIRECTED TODAY [facility] cefdinir 300 mg capsule TAKE 1 CAPSULE BY MOUTH TWICE DAILY FOR 10 DAYS cefdinir 300 mg capsule TAKE 1 CAPSULE BY MOUTH TWICE DAILY FOR 10 DAYS No cefdinir 300 mg capsule TAKE 1 CAPSULE BY MOUTH TWICE DAILY FOR 10 DAYS [facility] ciprofloxac in 250 mg tablet TAKE 1 TABLET BY MOUTH EVERY 12 HOURS FOR 7 DAYS ciprofloxac in 250 mg tablet TAKE 1 TABLET BY MOUTH EVERY 12 HOURS FOR 7 DAYS No ciprofloxa josé miguel 250 mg tablet TAKE 1 TABLET BY MOUTH EVERY 12 HOURS FOR 7 DAYS [facility] ciprofloxac in 500 mg tablet TAKE 1 TABLET BY MOUTH TWICE DAILY ciprofloxac in 500 mg tablet TAKE 1 TABLET BY MOUTH TWICE DAILY No ciprofloxa josé miguel 500 mg tablet TAKE 1 TABLET BY MOUTH TWICE DAILY [facility] diclofenac 1 % topical gel diclofenac 1 % topical gel No diclofenac 1 % topical gel [facility] diclofenac sodium 75 mg tablet,tristen yed release diclofenac sodium 75 mg tablet,tristen yed release No diclofenac sodium 75 mg tablet,del ayed release [facility] methylpredn isolone 4 mg tablets in a dose pack FOLLOW PACKAGE DIRECTIONS methylpredn isolone 4 mg tablets in a dose pack FOLLOW PACKAGE DIRECTIONS No methylpred nisolone 4 mg tablets in a dose pack FOLLOW PACKAGE DIRECTIONS [facility] ondansetron HCl 4 mg tablet ondansetron HCl 4 mg tablet No ondansetro n HCl 4 mg tablet [facility] phenazopyri dine 200 mg tablet TAKE 1 TABLET BY MOUTH EVERY 8 HOURS NEEDED FOR URINARY PROBLEMS FOR 3 DAYS phenazopyri dine 200 mg tablet TAKE 1 TABLET BY MOUTH EVERY 8 HOURS NEEDED FOR URINARY PROBLEMS FOR 3 DAYS No phenazopyr idine 200 mg tablet TAKE 1 TABLET BY MOUTH EVERY 8 HOURS NEEDED FOR URINARY PROBLEMS FOR 3 DAYS [facility] sulfamethox azole 800 mg-trimetho prim 160 mg tablet TAKE 1 TABLET BY MOUTH EVERY DAY BEFORE INTERCOURSE sulfamethox azole 800 mg-trimetho prim 160 mg tablet TAKE 1 TABLET BY MOUTH EVERY DAY BEFORE INTERCOURSE No sulfametho xazole 800 mg-trimeth oprim 160 mg tablet TAKE 1 TABLET BY MOUTH EVERY DAY BEFORE INTERCOURS E [facility] albuterol sulfate HFA 90 mcg/actuati on aerosol inhaler INHALE 2 PUFFS INTO THE LUNGS EVERY 4 HOURS NEEDED FOR WHEEZING albuterol sulfate HFA 90 mcg/actuati on aerosol inhaler INHALE 2 PUFFS INTO THE LUNGS EVERY 4 HOURS NEEDED FOR WHEEZING No albuterol sulfate HFA 90 mcg/actuat ion aerosol inhaler INHALE 2 PUFFS INTO THE LUNGS EVERY 4 HOURS NEEDED FOR WHEEZING [facility] amoxicillin 500 mg-potassiu m clavulanate 125 mg tablet TAKE 1 TABLET BY MOUTH TWICE DAILY amoxicillin 500 mg-potassiu m clavulanate 125 mg tablet TAKE 1 TABLET BY MOUTH TWICE DAILY No amoxicilli n 500 mg-potassi um clavulanat e 125 mg tablet TAKE 1 TABLET BY MOUTH TWICE DAILY [facility] amoxicillin 875 mg-potassiu m clavulanate 125 mg tablet TAKE 1 TABLET BY MOUTH EVERY 12 HOURS FOR 10 DAYS amoxicillin 875 mg-potassiu m clavulanate 125 mg tablet TAKE 1 TABLET BY MOUTH EVERY 12 HOURS FOR 10 DAYS No amoxicilli n 875 mg-potassi um clavulanat e 125 mg tablet TAKE 1 TABLET BY MOUTH EVERY 12 HOURS FOR 10 DAYS [facility] Nexium Nexium Yes Kelsy Sands [address] [facility] azithromyci n 250 mg tablet TAKE 2 TABLETS BY MOUTH FOR 1 DAY THEN TAKE 1 TABLET BY MOUTH DAILY FOR 4 DAYS THEREAFTER azithromyci n 250 mg tablet TAKE 2 TABLETS BY MOUTH FOR 1 DAY THEN TAKE 1 TABLET BY MOUTH DAILY FOR 4 DAYS THEREAFTER No azithromyc in 250 mg tablet TAKE 2 TABLETS BY MOUTH FOR 1 DAY THEN TAKE 1 TABLET BY MOUTH DAILY FOR 4 DAYS THEREAFTER [facility] benzonatate 100 mg capsule TAKE 1 CAPSULE BY MOUTH EVERY 8 HOURS NEEDED FOR COUGH benzonatate 100 mg capsule TAKE 1 CAPSULE BY MOUTH EVERY 8 HOURS NEEDED FOR COUGH No benzonatat e 100 mg capsule TAKE 1 CAPSULE BY MOUTH EVERY 8 HOURS NEEDED FOR COUGH [facility] BinaxNOW COVID-19 Ag Self Test kit TEST DIRECTED TODAY BinaxNOW COVID-19 Ag Self Test kit TEST DIRECTED TODAY No BinaxNOW COVID-19 Ag Self Test kit TEST DIRECTED TODAY [facility] cefdinir 300 mg capsule TAKE 1 CAPSULE BY MOUTH TWICE DAILY FOR 10 DAYS cefdinir 300 mg capsule TAKE 1 CAPSULE BY MOUTH TWICE DAILY FOR 10 DAYS No cefdinir 300 mg capsule TAKE 1 CAPSULE BY MOUTH TWICE DAILY FOR 10 DAYS [facility] ciprofloxac in 250 mg tablet TAKE 1 TABLET BY MOUTH EVERY 12 HOURS FOR 7 DAYS ciprofloxac in 250 mg tablet TAKE 1 TABLET BY MOUTH EVERY 12 HOURS FOR 7 DAYS No ciprofloxa josé miguel 250 mg tablet TAKE 1 TABLET BY MOUTH EVERY 12 HOURS FOR 7 DAYS [facility] Procedures Procedure Date / Time Performed Performing Clinicia n Source CT Abdomen Pelvis WO Con 2022-12-04 20:25:00 [facility] XR Abdomen 2 View/1 View Cxr 2022-12-04 17:06:00 [facility] Hysterectomy (Ovaries Remain) [facility] Oral / Dental Surgery [facility] Plan of Care Planned Activity Planned Date Details Comments Source Instructions [facility] Encounters Start Date/Time End Date/Time Encounter Type Admission Type Attending [facility] Care Facility Care Department Encounter ID Source 2024-01-09 08:06:00 Outpatient Kayla By[facility] [id number] [facility] 2022-12-05 10:44:00 Inpatient Urgent Fifi Acostay [facility] Medical Service [id number] [facility] 2022-11-27 11:56:00 Inpatient Elective Ludin Joe) [facility] Surgical Service [id number] [facility] 2022-11-10 10:19:00 Outpatient Kayla Byers [facility] [id number] [facility] 2022-02-21 14:45:00 Outpatient Kayla Byers [facility] [id number] [facility] 2021-10-18 09:04:28 Outpatient Kayla Byers [facility] [id number] [facility] 2021-06-29 11:58:18 Outpatient Kayla Erwin [facility] [id number] [facility] 2023-05-31 16:00:00 2023-05-31 16:00:00 Outpatient RONEL NOONAN [id number] Olga Lidia [facility] 2023-05-29 00:00:00 2023-05-29 00:00:00 Outpatient ADRIANNE SOSA [id number] Olga Lidia [facility] 2023-03-19 08:00:00 2023-03-19 08:00:00 Outpatient LAURA PLASCENCIA [id number] [facility] 2022-12-11 00:00:2022-12-11 00:00:00 Outpatient GC_BCSS_How ell_Dan1 PRIV PRIV [id number] [facility] 2022-12-11 00:00:00 2022-12-11 00:00:00 Outpatient GC_BCSS_How ell_Dan1 PRIV PRIV [id number] [facility] 2022-12-04 15:13:00 2022-12-05 05:20:00 Emergency ER Alma Thakkar [facility] [id number] [facility] 2022-11-15 00:00:00 2022-11-15 00:00:00 Outpatient RONEL NOONAN [id number] [facility] 2022-11-14 00:00:00 2022-11-14 00:00:00 Outpatient ADRIANNE SOSA [id number] [facility] 2022-10-23 00:00:00 2022-10-23 00:00:00 Outpatient GC_BCSS_How anitha_Dan1 PRIV PRIV [id number] [facility] 2022-10-23 00:00:00 2022-10-23 00:00:00 Outpatient GC_BCSS_How ell_Dan1 PRIV PRIV [id number] [facility] 2022-10-23 00:00:00 2022-10-23 00:00:00 Outpatient GC_BCSS_How ell_Dan1 PRIV PRIV [id number] [facility] 2022-10-18 00:00:00 2022-10-18 00:00:00 Outpatient GC_BCSS_How ell_Dan1 PRIV PRIV [id number] [facility] 2022-10-16 00:00:00 2022-10-16 00:00:00 Outpatient GC_BCSS_How ell_Dan1 PRIV PRIV [id number] [facility] 2022-10-10 00:00:00 2022-10-10 00:00:00 Outpatient GC_BCSS_How ell_Dan1 PRIV PRIV [id number] [facility] 2022-10-05 00:00:00 2022-10-05 00:00:00 Outpatient GC_BCSS_How ell_Dan1 PRIV PRIV [id number] [facility] 2022-10-05 00:00:00 2022-10-05 00:00:00 Ludin Joe MD: [address] [place] [id number] , Ph. [facility] - GC_BCSS_11s t Office [id number] [facility] 2022-10-04 00:00:00 2022-10-04 00:00:00 Outpatient GC_BCSS_How ell_Dan1 PRIV PRIV [id number] [facility] 2022-10-02 00:00:00 2022-10-02 00:00:00 Outpatient GC_BCSS_How ell_Dan1 PRIV PRIV [id number] [facility] 2022-10-02 00:00:00 2022-10-02 00:00:00 Outpatient GC_BCSS_How ell_Dan1 PRIV PRIV [id number] [facility] 2022-09-20 00:00:00 2022-09-20 00:00:00 Outpatient GC_BCSS_How ell_Dan1 PRIV PRIV [id number] [facility] 2022-06-16 00:00:00 2022-06-16 00:00:00 Outpatient RONEL NOONAN [id number] [facility] 2022-05-08 00:00:00 2022-05-08 00:00:00 Outpatient GC_BVWC_Sou th_J PRIV PRIV [id number] [facility] 2022-04-25 00:00:00 2022-04-25 00:00:00 Outpatient [facility]ONAN [id number] [facility]22-04-13 00:00:00 2022-04-13 00:00:00 Outpatient ADRIANNE SOSA [id number] [facility] 2022-03-13 12:20:00 2022-03-13 12:20:00 Outpatient OLGA LIDIA OLGA LIDIA [id number] [facility] 2022-03-13 00:00:00 2022-03-13 00:00:00 Outpatient RONEL NOONANLUIS EID [id number] [facility] 2022-02-17 00:00:00 2022-02-17 00:00:00 Outpatient RONEL NOONAN OLGA LIDIA EID [id number] [facility] 2022-02-16 13:00:00 2022-02-16 13:00:00 Outpatient DON JOSHI OLGA LIDIA [id number] [facility] 2022-02-16 11:25:00 2022-02-16 11:25:00 Outpatient LABKimberly EID OLGA LIDIA [id number] [facility] 2022-02-16 00:00:00 2022-02-16 00:00:00 Outpatient ADRIANNE SOSA OLGA LIDIA [id number] [facility] 2022-02-16 00:00:00 2022-02-16 00:00:00 Outpatient ADRIANNE SOSA OLGA LIDIA [id number] [facility] 2022-02-15 00:00:00 2022-02-15 00:00:00 Outpatient ADRIANNE SOSA OLGA LIDIA [id number] Olga Lidia [facility] 2022-02-02 00:00:00 2022-02-02 00:00:00 Outpatient RONEL NOONAN OLGA LIDIA EID [id number] Olag Lidia [facility] 2022-02-01 10:05:00 2022-02-01 10:05:00 Outpatient LABKimberly EID OLGA LIDIA [id number] [facility] 2022-02-01 09:30:00 2022-02-01 09:45:00 Office Visit ShaistaChloetracie Madera [id number] [facility] 2022-01-30 00:00:00 2022-01-30 00:00:00 Outpatient SHAISTARONEL CANSECO OLGA LIDIA EID [id number] [facility] 2022-01-17 10:45:00 2022-01-17 11:00:00 Office Visit Ronel Noonan [id number] Olga Lidia [facility] 2022-01-16 16:15:00 2022-01-16 16:15:00 Outpatient RONEL NOONAN OLGA LIDIA EID [id number] [facility] 2022-01-16 00:00:00 2022-01-16 00:00:00 Outpatient RONEL NOONAN OLGA LIDIA EID [id number] Olga Lidia [facility] 2022-01-02 00:00:00 2022-01-02 00:00:00 Outpatient RONEL NOONAN OLGA LIDIA EID [id number] Olga Lidia [facility] 2022-01-02 00:00:00 2022-01-02 00:00:00 Outpatient RONEL NOONAN OLGA LIDIA EID [id number] Olga Lidia [facility] 2021-12-29 14:50:00 2021-12-29 14:50:00 Outpatient LAB90 OLGA LIDIA EID [id number] Olga Lidia [facility] 2021-12-29 14:00:00 2021-12-29 14:15:00 Office Visit Ronel Noonan [id number] Olga Lidia [facility] 2021-03-21 01:29:00 2021-03-21 01:29:00 Emergency ER Arnie Smith [facility] [id number] [facility] 2019-09-01 11:20:00 2019-09-01 11:20:00 Outpatient [facility] [id number] [facility] 2019-08-28 08:20:00 2019-08-28 08:20:00 Outpatient [facility] [id number] [facility] 2019-08-27 14:39:00 2019-08-27 14:39:00 [facility] [id number] [facility] 2019-08-26 15:45:00 2019-08-26 15:45:00 Out[facility] [id number] [facility] 2019-08-26 14:00:00 2019-08-26 14:00:00 Out[facility] [id number] [facility] 2019-08-26 11:16:00 2019-08-26 11:16:00 Outpatient [facility] [id number] [facility] 2019-08-07 15:52:00 2019-08-07 15:52:00 [facility] [id number] 2019-06-24 15:00:00 2019-06-24 15:00:00 [facility] [id number] [facility] 2019-01-31 08:40:00 2019-01-31 08:40:00 Outpatient [facility] [id number] [facility] Results Test Description Test Time Test Comments Results Result Co mments Source HIndications to order a Urinalysis: AlteredMental st.lethargyUrine Source: Urine Avery [id number] 18:54:00* Test Item Value Reference Range Interpretation Comme [facility] Urinalysis (test code = UACRFLXNO) No HIndications to order a Urinalysis: AlteredMental st.lethargyUrine Source: Urine Avery CatheterUrine [id number] 18:29:00* Test Item Value Reference Range Interpretation Comme [facility] Urine Color (test code = 5778-6) Yellow Yellow [facility] [id number] 18:29:00* Test Item Value Reference Range Interpretation Comme [facility] Urine Clarity (test code = 48998-4) Hazy Clear [facility] by Test strip 2022-12-04 18:29:00* Test Item Value Reference Range Interpretation Comme [facility] Urine Specific Makinen (test code = 5811-5) 1.015 1.005-1.030 [facility] pH measurement by automated test strip 2022-12-04 18:29:00* Test Item Value Reference Range Interpretation Comme [facility] Urine pH (test code = 41161-7) 7.0 5.0-9.0 [facility] leukocyte esterase detection by automated test [id number] 18:29:00* Test Item Value Reference Range Interpretation Comme [facility] Urine Leukocyte Esterase (te st code = 38536-3) Trace Negative [facility] [Presence] in Urine by Test strip 2022-12-04 18:29:00* Test Item Value Reference Range Interpretation Comme [facility] Urine Nitrite (test code = 5802-4) Negative Negative [facility] protein measurement by automated test strip (mass/volume)2022-12-04 18:29:00* Test Item Value Reference Range Interpretation Comme [facility] Urine Protein (test code = 45823-9) Negative mg/dL Neg-Trace [facility] glucose measurement by test strip (mass/volume)2022-12-04 18:29:00* Test Item Value Reference Range Interpretation Comme [facility] Urine Glucose (UA) (test cod e = 5792-7) Negative mg/dL Negative [facility] ketones measurement by automated test strip (mass/volume)2022-12-04 18:29:00* Test Item Value Reference Range Interpretation Comme [facility] Urine Ketones (test code = 47334-4) 80 mg/dL Negative [facility] urobilinogen measurement (units/volume) by test [id number] 18:29:00* Test Item Value Reference Range Interpretation Comme [facility] Urine Urobilinogen (test cod e = 17696-9) 0.2 mg/dL Less than 2 [facility] total bilirubin detection by automated test [id number] 18:29:00* Test Item Value Reference Range Interpretation Comme [facility] Urine Bilirubin (test code = 82947-6) Negative Negative [facility] hemoglobin detection by automated test [id number] 18:29:00* Test Item Value Reference Range Interpretation Comme [facility] Urine Blood (test code = 20799-5) Large Negative [facility] erythrocyte count by microscopy (number/high power field)2022-12-04 18:29:00* Test Item Value Reference Range Interpretation Comme [facility] Urine RBC (test code = 04545-3) 21-50 HPF 0-3 [facility] detection in urine sediment by light [id number] 18:29:00* Test Item Value Reference Range Interpretation Comme [facility] Urine WBC (test code = 92524-8) 0-3 HPF 0-3 [facility] Center[facility]amous epithelial cells detection in urine sediment by light [id number] 18:29:00* Test Item Value Reference Range Interpretation Comme [facility] Urine Squamous Epithelial Ce lls (test code = 85086-7) 0-3 HPF 0-3 [facility] Center[facility]acteria detection in urine sediment by light [id number] 18:29:00* Test Item Value Reference Range Interpretation Comme [facility] Urine Bacteria (test code = 56225-1) Rare-Few HPF None Seen [facility] Center[facility]ucus detection in urine sediment by light [id number] 18:29:00* Test Item Value Reference Range Interpretation Comme nts Urine Mucus (test code = 8247-9) Few LPF See_Comment [Automated Cardicaa ge] The system which generated this result transmitted reference range: <2+. The reference range was not used to interpret this result as normal/abnormal. [facility] Center[facility] Not [id number] 18:29:00* Test Item Value Reference Range Interpretation Comme nts Urine Culture Reflexed (test code = LOINC) No [facility]:13[facility]00* Test Item Value Reference Range Interpretation Comme nts Chemistry (test code = NA-T) 140 mmol/L 136-145 N Chemistry (test code = K-T) 4.0 mmol/L 3.5-5.1 N Chemistry (test code = CL-T) 102 mmol/L 98-107 N Chemistry (test code = CO2-T) 28 mmol/L 22-29 N Chemistry (test code = ANGP) 14 mmol/L 10-20 N Chemistry (test code = BUN) 6 mg/dL 9.8-20.1 L Chemistry (test code = CREATT) 0.68 mg/dL 0.6-1.1 N Chemistry (test code = EGFRCR) 102 Reference Range for Estimated GFR: Greater than 90 mL/min/1.73 h1Gnyewywi eGFR is based on the CKD-EPI 202 equation thatdoes not use a race coefficient. Chemistry (test code = GLU-T) 96 mg/dL 70-105 N Chemistry (test code = CA-T) 9.3 mg/dL 7.8-10.44 N Chemistry (test code = TBILI-T) 0.3 mg/dL 0.2-1.2 N Chemistry (test code = TP) 7.0 g/dL 6.0-8.3 N Chemistry (test code = ALB) 3.8 g/dL 3.5-5.0 N Chemistry (test code = GLOB) 3.2 g/dL 2.4-3.5 N Chemistry (test code = AG) 1.2 g/dL 1.2-2.2 N Chemistry (test code = ALP) 76 U/L 40-110 N Chemistry (test code = AST) 67 U/L 5-34 H Chemistry (test code = ALT) 110 U/L 8-55 H S EQzcgqxsrf7961-93-51 18:13:00* Test Item Value Reference Range Interpretation Comme nts Chemistry (test code = LIP) 7 U/L 8-78 L S EFqexksvecn4604-27-08 17:53:00* Test Item Value Reference Range Interpretation Comme nts Hematology (test code = WBCT) 9.9 10x3/uL 4.8-10.8 N Hematology (test code = RBCT) 3.82 mill/uL 4.20-5.40 L Hematology (test code = HGBT) 11.3 g/dL 12.0-16.0 L Hematology (test code = HCTT) 35.2 % 36.0-47.0 L Hematology (test code = MCV) 92.2 fl 78.0-98.0 N Hematology (test code = MCH) 29.7 pg 27.0-31.0 N Hematology (test code = MCHC) 32.2 g/dL 32.0-36.0 N Hematology (test code = RDW) 12.5 % 11.5-14.5 N Hematology (test code = PLTT) 332 10x3/uL 130-400 N Hematology (test code = MPV) 9.5 fL 7.4-10.4 N Hematology (test code = %NEUT) 69.8 % 42.0-75.0 N Hematology (test code = %LYMPH) 16.4 % 21.0-51.0 L Hematology (test code = %MONO) 11.0 % 0.0-10.0 H Hematology (test code = %EOS) 1.5 % 0.0-10.0 N Hematology (test code = %BASO) 1.4 % 0.0-1.0 H Hematology (test code = NEUT#) 6.9 thou/uL 1.40-6.50 H Hematology (test code = LYMPH#) 1.6 thou/uL 1.20-3.40 N Hematology (test code = MONO#) 1.1 thou/uL 0.11-0.59 H Hematology (test code = EOS#) 0.1 thou/uL 0.0-0.7 N Hematology (test code = BASO#) 0.1 thou/uL 0.0-0.2 N SSerum or plasma sodium measurement (moles/volume)2022-12-04 17:40:00* Test Item Value Reference Range Interpretation Comme [facility] Sodium Level (test code = 2951-2) 140 mmol/L 136-145 [facility] potassium measurement (moles/volume)2022-12-04 17:40:00* Test Item Value Reference Range Interpretation Comme nts Potassium Level (test code = 2823-3) 4.0 mmol/L 3.5-5.1 [facility] or plasma chloride measurement (moles/volume)2022-12-04 17:40:00* Test Item Value Reference Range Interpretation Comme nts Chloride Level (test code = 2075-0) 102 mmol/L 98-107 [facility] or plasma carbon dioxide, total measurement (moles/volume)2022-12-04 17:40:00* Test Item Value Reference Range Interpretation Comme nts Carbon Dioxide Level (test c ode = 2027-9) 28 mmol/L 22-29 [facility] or plasma anion gne0934-58-21 17:40:00* Test Item Value Reference Range Interpretation Comme nts Anion Gap (test code = 55348-4) 14 mmol/L 10-20 [facility] or plasma urea nitrogen measurement (mass/volume)2022-12-04 17:40:00* Test Item Value Reference Range Interpretation Comme nts Blood Urea Nitrogen (test co de = 3094-0) 6 mg/dL 9.8-20.1 [facility] or plasma creatinine measurement (mass/volume)2022-12-04 17:40:00* Test Item Value Reference Range Interpretation Comme nts Creatinine (test code = 2160-0) 0.68 mg/dL 0.6-1.1 [facility] CareGlomerular filtration rate/1.73 sq M.predicted [Volume Rate/Area] in Serum, Plasma [id number] 17:40:00* Test Item Value Reference Range Interpretation Comme nts Estimated GFR (CKD-EPI 2020) (test code = 39123-6) 102 [facility] CareGlucose [Mass/volume] in Serum or Plasma 2022-12-04 17:40:00* Test Item Value Reference Range Interpretation Comme nts Glucose Level (test code = 2345-7) 96 mg/dL 70-105 [facility] or plasma calcium measurement (mass/volume)2022-12-04 17:40:00* Test Item Value Reference Range Interpretation Comme nts Calcium Level (test code = 22459-1) 9.3 mg/dL 7.8-10.44 [facility] or plasma total bilirubin measurement (mass/volume)2022-12-04 17:40:00* Test Item Value Reference Range Interpretation Comme nts Total Bilirubin (test code = 1975-2) 0.3 mg/dL 0.2-1.2 [facility] or plasma protein measurement (mass/volume)2022-12-04 17:40:00* Test Item Value Reference Range Interpretation Comme [facility] Serum Total Protein (test co de = 2885-2) 7.0 g/dL 6.0-8.3 [facility] or plasma albumin measurement by bromocresol green (BCG) dye binding method ([id number] 17:40:00* Test Item Value Reference Range Interpretation Comme nts Albumin (test code = 23274-2) 3.8 g/dL 3.5-5.0 [facility] CareGlobulin [Mass/volume] in Serum by calculation 2022-12-04 17:40:00* Test Item Value Reference Range Interpretation Comme nts Globulin (test code = 69469-4) 3.2 g/dL 2.4-3.5 [facility]/Globulin [Mass Ratio] in Serum or Plasma 2022-12-04 17:40:00* Test Item Value Reference Range Interpretation Comme [facility] Albumin/Globulin Ratio (test code = 1759-0) 1.2 g/dL 1.2-2.2 [facility] CenterAlkaline phosphatase [Enzymatic activity/volume] in Serum or Fyhfhg9096-05-80 17:40:00* Test Item Value Reference Range Interpretation Comme nts Alkaline Phosphatase (test c ode = 6768-6) 76 U/L 40-110 [facility] or plasma aspartate aminotransferase measurement (enzymatic activity/volume)2022-12-04 17:40:00* Test Item Value Reference Range Interpretation Comme nts Aspartate Amino Transf (AST/ SGOT) (test code = 1920-8) 67 U/L 5-34 [facility] or plasma alanine aminotransferase measurement without P-5'-P (enzymatic jlvvzi6891-57-28 17:40:00* Test Item Value Reference Range Interpretation Comme nts Alanine Aminotransferase (AL T/SGPT) (test code = 1744-2) 110 U/L 8-55 [facility] or plasma lipase measurement (enzymatic activity/volume)2022-12-04 17:40:00* Test Item Value Reference Range Interpretation Comme nts Lipase (test code = 3040-3) 7 U/L 8-78 [facility] Center[facility]ukocytes [#/volume] in Blood by Automated yqlkk5630-63-44 17:40:00* Test Item Value Reference Range Interpretation Comme [facility] White Blood Count (test code = 6690-2) 9.9 10x3/uL 4.8-10.8 [facility] Center[facility] erythrocytes automated count (number/volume)2022-12-04 17:40:00* Test Item Value Reference Range Interpretation Comme [facility] Red Blood Count (test code = 789-8) 3.82 mill/uL 4.20-5.40 [facility] hemoglobin measurement (mass/volume) 2022-12-04 17:40:00* Test Item Value Reference Range Interpretation Comme [facility] Hemoglobin (test code = 718-7) 11.3 g/dL 12.0-16.0 [facility] Center[facility] erythrocyte mean corpuscular volume 2022-12-04 17:40:00* Test Item Value Reference Range Interpretation Comme [facility] Mean Corpuscular Volume (preeti t code = 787-2) 92.2 fl 78.0-98.0 [facility] erythrocyte mean corpuscular hemoglobin (mass per erythrocyte)2022-12-04 17:40:00* Test Item Value Reference Range Interpretation Comme [facility] Mean Corpuscular Hemoglobin (test code = 785-6) 29.7 pg 27.0-31.0 [facility] erythrocyte mean corpuscular hemoglobin concentration measurement (mass/vuu5869-43-28 17:40:00* Test Item Value Reference Range Interpretation Comme [facility] Mean Corpuscular Hemoglobin Concent (test code = 786-4) 32.2 g/dL 32.0-36.0 [facility] erythrocyte distribution width ratio 2022-12-04 17:40:00* Test Item Value Reference Range Interpretation Comme [facility] Red Cell Distribution Width (test code = 788-0) 12.5 % 11.5-14.5 [facility] blood platelet count (count/volume) 2022-12-04 17:40:00* Test Item Value Reference Range Interpretation Comme [facility] Platelet Count (test code = 777-3) 332 10x3/uL 130-400 [facility] Center[facility] blood platelet mean otovge3546-17-45 17:40:00* Test Item Value Reference Range Interpretation Comme nts Mean Platelet Volume (test c ode = 11963-7) 9.5 fL 7.4-10.4 [facility] blood neutrophils/100 leukocytes 2022-12-04 17:40:00* Test Item Value Reference Range Interpretation Comme [facility] Neutrophils % (test code = 770-8) 69.8 % 42.0-75.0 [facility] CenterLymphocytes/100 leukocytes in Blood by Automated uwolc2900-31-81 17:40:00* Test Item Value Reference Range Interpretation Comme [facility] Lymphocytes % (test code = 736-9) 16.4 % 21.0-51.0 [facility] blood monocytes/100 leukocytes 2022-12-04 17:40:00* Test Item Value Reference Range Interpretation Comme [facility] Monocytes % (test code = 5905-5) 11.0 % 0.0-10.0 [facility] blood eosinophils/100 leukocytes 2022-12-04 17:40:00* Test Item Value Reference Range Interpretation Comme [facility] Eosinophils % (test code = 713-8) 1.5 % 0.0-10.0 [facility] blood basophils/100 leukocytes 2022-12-04 17:40:00* Test Item Value Reference Range Interpretation Comme [facility] Basophils % (test code = 706-2) 1.4 % 0.0-1.0 [facility] neutrophils automated count (number/volume)2022-12-04 17:40:00* Test Item Value Reference Range Interpretation Comme nts Neutrophils # (test code = 751-8) 6.9 thou/uL 1.40-6.50 [facility] CenterLymphocytes [#/volume] in Blood by Automated qapog5799-01-91 17:40:00* Test Item Value Reference Range Interpretation Comme nts Lymphocytes # (test code = 731-0) 1.6 thou/uL 1.20-3.40 [facility] monocytes automated count (number/volume) 2022-12-04 17:40:00* Test Item Value Reference Range Interpretation Comme [facility] Monocytes # (test code = 742-7) 1.1 thou/uL 0.11-0.59 [facility] Center[facility] eosinophils automated count (count/volume) 2022-12-04 17:40:00* Test Item Value Reference Range Interpretation Comme [facility] Eosinophils # (test code = 711-2) 0.1 thou/uL 0.0-0.7 [facility] blood basophil count (count/volume) 2022-12-04 17:40:00* Test Item Value Reference Range Interpretation Comme [facility] Basophils # (test code = 704-7) 0.1 thou/uL 0.0-0.2 [facility] CareGlucose Ewfrsamfmhz0470-94-02 20:10:00* Test Item Value Reference Range Interpretation Comme [facility] Glucose Fingerstick (test code = WGLUC) 94 mg/dL 70-115 [employer] Ki Nichole RN or Hemoglobin and Tmqlixyetd9750-01-71 07:45:00* Test Item Value Reference Range Interpretation Comme [facility] Hemoglobin (test code = HGBT) 10.5 g/dL 12.2-14.8 L Hematocrit (test code = HCTT) 33.5 % 36.5-44.4 L Basic Metabolic Fwvhr8563-71-90 07:45:00* Test Item Value Reference Range Interpretation Comme [facility] SODIUM (test code = NA) 140.0 mmol/L 136.0-145.0 N Potassium,K (test code = K) 4.3 mmol/L 3.0-5.1 N Chloride (test code = CL) 108 mmol/L 98-107 H Carbon Dioxide (test code = CO2) 26 mmol/L 20-31 N Anion Gap (test code = GAP) 6 mmol/L 5-15 N Blood Urea Nitrogen (test code = BUN) 10 mg/dL 9-23 N Creatinine (test code = CREATT) 0.72 mg/dL 0.55-1.02 N Creatinine Clr Calc Pharmacy (test code = CRCLPHA) 80.70 mL/min Estimated Glomerular Filt Rate (test code = EGFR.XX) 97 See_Comment Reported eGFR is based on the CKD-EPI 2020 equation thatdoes not use a race coefficient. Additional information canbe found at:[email or web address] [email or web address].pdf ([email or web address].[email or web address]) [Automated message] The system which generated this result transmitted reference range: >=90 ml/min/1.73m2. The reference range was not used to interpret this result as normal/abnormal. BUN/Creatinine Ratio (test code = BCRATIO) 14 ratio 10-20 N Glucose (test code = GLU) 87 mg/dL 74-106 N Osmolality,Calculate d (test code = OSMOC) 287.5 Calcium (test code = CA) 8.6 mg/dL 8.3-10.6 N Glucose Wzodgycszne3855-07-03 21:47:00* Test Item Value Reference Range Interpretation Comme nts Glucose Fingerstick (test code = WGLUC) 182 mg/dL 70-115 [employer] Ki Nichole RN or XR voiding cystourethrogrm (p)[id number] [place] [address] Patient Name: Brianda Ramirez Medical Record#: [id number] Address: [address] [place] [address] City/State/Zip: [place] [address]: April Acosta MD Insurance: BCBS BLUE ADVANTAGE EXC HANGE /Age/Sex: 1965/57/F Self Pay Admit/Reg Date: 12/05/[address]: Ludin Joe MD [id number] PCP: Siva Kirby NP Date of Service: 12/06/22 Order (s): XR voiding cystourethrogrm (p) CPT Code: 31630 Report Number: [id number] Reason for Exam: h/o colovessicle fistula Clinical history: Colovesical fistula. Location: R 16. FINDINGS: Following administration of the risks, benefits, and alternatives to the procedure, the patient gave oral and written consent. Then, using sterile technique, a total of 150 mL contrast was instilled into the bladder under fluoroscopy. The bladder demonstrates a normal configuration. No vesicoureteral reflux is noted during the course of this examination. There is no evidence of fistula. There is complete emptying of the bladder on the postvoid image. A total of 1.13 minutes fluoroscopy time is utilized. Reference air kerma is 39.1 mGy. IMPRESSION: 1. No abnormalities are identified. Electronically signed by: Adrianne Rothman MD 12/06/2022 3:12 PM CDT Dictated By: Adrianne Rothman MD 12/06/22 142 Signed By: Adrianne Rothman MD 12/06/22 1514 TD/TT: 12/06/221425 Tech: GMR04 cc: [id number]; [id number]* Ludin Joe MD; Siva Kirby. NlXR small bowel follow thru ([facility]St[facility] [address] [place] [address] Patient Name: Brianda Ramirez Medical Record#: [id number] Address: [address] [place] [address] City/State/Zip: [place] [address]: April cAosta MD Insurance: BCBS BLUE ADVANTAGE EXC HANGE /Age/Sex: 1965/57/F Self Pay Admit/Reg Date: 12/05/[address]: Ludin Joe MD Location: SJM5S/LR670-[id number] PCP: Siva Kirby NP Date of Service: 12/05/22 Order (s): XR small bowel follow thru (SB CPT Code: 89388 Report Number: [id number] Reason for Exam: abdominal distention EXAMINATION: XR small bowel follow thru (SB CLINICAL INDICATION: Female, 57 years old with abdominal distention TECHNIQUE: Front End Loader Driver KUB is performed. Patient was subsequently administered oral contrast, serial KUB examinations are performed until contrast reaches the colon. Spot images are obtained as needed. COMPARISON: None TOTAL FLUOROSCOPY TIME: 0 secondsTOTAL NUMBER OF IMAGES: 7 FINDINGS: Front End Loader Driver KUB demonstrates mild gaseous distention of the stomach and small bowel. Oral contrast was administered, opacifying the stomach. The duodenal sweep is unremar kable. There is prominence of thejejunum with mild fold thickening. Distal small bowel is visualized and appears to be of normal caliber, slightly featureless. The colon is visualized at 5 hours, slightly delayed bowel transit. IMPRESSION: Colon is visualized at 5 hours suggesting that there is slight delay in transit time. Proximal jejunum is distended, mild wall thickening. Electronically signed by: Enmanuel Pyle MD 12/05/2022 6:10 PM CDT Dictated By: Enmanuel Pyle MD 12/05/221231 Signed By: Enmanuel Pyle MD 12/05/221811 TD/TT: 12/05/221231 Tech: PTN01 cc: [id number]; [id number]* Ludin Joe MD; Siva Kirby. NlCT Abdomen Pelvis WO Con [facility] 1965 [facility]: BRIANDA RAMIREZ [address]: [place] [address] : 1965 Age: 57 SEX:F [phone] Exam Date: 12/04/22 Status: REG ER Acct: [id number] Loc: [facility] Pt Unit #: [id number] Report #: [id number] CC: Alma Bueno MD PULSECHECKSJX:[id number] CAT SCAN REPORT Report Status: Signed Order # Category/Exam [id number] CT/CT Abdomen Pelvis WO Con ([id number]): . Results CT Abdomen Pelvis WO Con: 12/04/2022 8:35 PM HISTORY: Small bowel obstruction. COMPARISON: None. TECHNIQUE: Multiple contiguous axial images were obtained and a CT of the abdomen and pelvis without IV contrast. Coronal and sagittal reformats were performed. FINDINGS: This examination is limited for the evaluation of solid organs and vascular structure s due to the lack of intravenous contrast. Lower Chest: Bibasilar subsegmental atelectasis and small bilateral effusions. Abdomen: Liver: within normal limits. Gallbladder: Surgically absent Bile Ducts: Normal caliber. Pancreas: within normal limits. Spleen: within normal limits. Adrenals: within normal limits. Kidneys: within normal limits. Pelvis: Reproductive Organs: No pelvic masses. Ureters: within normal limits. Bladder: Avery catheter within the urinary bladder. Bowel: Dilated small bowel loops with air-fluid levels. Transition point not clearly delineated. Anastomotic suture lines are seen in the sigmoid. Mesenteric Lymph Nodes: No enlarged mesenteric lymph nodes. Peritoneum: Mild p elvic free fluid and generalized mesenteric stranding. Vessels: Atherosclerotic calcifications in the aorta Retroperitoneum: within normal limits. Abdominal Wall: within normal limits. Bones: Unremarkable. IMPRESSION: 1. Dilated small bowel loops with air-fluid levels representing ileus versus obstruction. 2. Transition point not clearly delineated. Reported By: Mack Chandra DO Electronically Signed Date/Time: 12/04/222100 Technologist: NANCY Dictated Date/Time: 12/04/222056 Transcribed Date/Time:XR Abdomen 2 View/[address] [facility] : 1965 [facility]: [facility] Pt Name: BRIANDA RAMIREZ [address] Phys: [place] [address] : 1965 Age: 57 SEX:F [phone] Exam Date: 12/04/22 Status: REG ER Acct: [id number] Loc: [facility] Pt Unit #: [id number] Report #: [id number] CC: Alma Bueno MD PULSECHECKSJX:[id number] IMAGING SERVICES REPORT Report Status: Signed Order # Category/Exam [id number] RAD/XR Abdomen 2 View/1 View Cxr ([id number]): . Results Exam: Single view of the chest and 2 views of the abdomen HISTORY: Abdominal pain COMPARISON: None FINDINGS: 2 views of the abdomen and asingle view the chest shows dilated small bowel loops throughout the abdomen with air-fluid levels on upright exam. Air is seen to the level of the rectum. Surgical clips are seen throughout the abdomen and pelvis. The cardiomediastinal silhouette is normal in size. Scattered bilateral atelectasis and scarring are present. Calcifications are seen in the aorta. Osseous degenerative changes are noted. IMPRESSION: Dilated small bowel loops with air-fluid levels on upright exam representing small bowel obstruction versus ileus. Reported By: Mack Chandra DO Electronically Signed Date/Time: 12/04/221803 Technologist: NANCY Dictated Date/Time: 12/04/221802 Transcribed Date/Time:XR [facility]St. [facility] [address] [place], [place] [address] Patient Name: Brianda Ramirez Medical Record#: [id number] Address: [address] [place] [address] City/State/[place] [address]: Ludin PINZON) Heath Montelongo Insurance: BCBS BLUE ADVANTAGE EXC HANGE /Age/Sex: 1965/57/F Self Pay Admit/Reg Date: 11/27/[address]: April Acosta MD Location: SJM5S/IF955-V PCP: Siva Kirby NP Date of Service: 11/30/22 Order (s): XR KUB CPT Code: 88839 Report Number: [id number] Reason for Exam: sbo EXAM: Abdominal x-ray, 1 view Dictation location: E5 INDICATION: Small bowel obstruction COMPARISON: Abdominal radiographs on 11/29/2022 DISCUSSION: A frontal view of the abdomen is submitted. Several mildly dilated air-filled small bowel loops are noted. Bowel gas is present within the colonto the level of the rectum. No gross evidence for intra-abdominal free air is seen. Numerous abdominal surgical clips are noted. No acutebony abnormalities are identified. IMPRESSION: Findings are consistent with ileus or partial small bowel obstruction. No gross evidence of intra-abdominal free air. Electronically signed by: Igor Newman MD 11/30/2022 8:57 AM CDT Dictated By: Igor Newman MD 11/30/22 0643 Signed By: Igor Newman MD 11/30/22 0859 TD/TT: 643 Tech: AA181 cc: [id number]; [id number]* Siva Kirby. ; MAUREEN Ochoa. [address] 8[address] Patient Name: Brianda Ramirez Medical Record#: [id number] Address: [address] [place] [address] City/State/Zip: [place] [address]: Ludin PINZON) Heath Montelongo Insurance: [employer] BLUE ADVANTAGE EXC HANGE /Age/Sex: 1965/57/F Self Pay Admit/Reg Date: 11/27/[address]: April Acosta MD Location: SJM5S/CO655-W PCP: Siva Kirby NP Date of Service: 11/29/22 Order (s): XR KUB CPT Code: 01630 Report Number: [id number] Reason for Exam: ileus vs SBO Abdomen (KUB) History: ileus vs SBO Comparison: November 29 the same day Location: H45 Number of images: 2 There are dilated air-filled loops of small bowel. The bones appear unchanged. No pathologic calcifications are identified. IMPRESSION: The previously identified nasogastric tube is no longer demonstrated on the current images. There continue to be dilated air-filled loops of small bowel, which could be due to a small bowel obstruction. Electronically signed by: Louie Calderon MD 11/29/2022 5:44 PM CDT Dictated By: Louie Calderon MD 11/29/221705 Signed By: Louie Calderon MD 11/29/221745 TD/TT: 11/29/221705 Tech: LCA06 cc: [id number]; [id number]* Siva Kirby. Nl; April Acosta MD XR KUBSt. [address] [address] Patient Name: Brianda Ramirez Medical Record#: [id number] Address: [address] [place] [address] City/State/Zip: [place] [address]: Ludin PINZON) Heath Montelongo [facility] [employer] [facility] /Age/Sex: 1965/57/F Self Pay Admit/Reg Date: 11/27/[address]: Alberto Doss MD Location: SJM5S/DM785-[id number] PCP: Siva Kirby NP Dateof Service: 11/29/22 Order (s): XR KUB CPT Code: 52035 Report Number: [id number] Reason for Exam: NGT Location: H3 KUB of the abdomen, 11/29/2022 CLINICAL HISTORY: Placement of nasogastric feedingtube COMPARISON EXAM: None relevant to this exam A nasogastric feeding tube is seen with the tip inthe body of the stomach. The port of the nasogastric tube appears situated distal to the esophagogastric junction. There is no pneumoperitoneum. There is preferential small bowel obstruction and concern for a distal small bowelobstruction. Multiple surgical clips are identified. Electronically signed by: Virginie Son MD 11/29/2022 5:29 AM CDT Dictated By: Brandon Son MD 11/29/22517 Signed By: Virginie Cervantes MD 11/29/2231 TD/TT: 11/29/22517 Tech: GC217 cc: [id number]; [id number]* Siva Kirby. Nl; Alberto Doss MD
[2024-01-13 18:01] LABS: Absolute Eosinophils 0.1 K/uL (0-0.5); Absolute Lymphocytes (CBC) 1.7 K/uL (0.7-4.9); Absolute Monocytes 0.7 K/uL (0.1-1.3); Absolute Neutrophil 4.2 K/uL (1.8-8.0); Basophils % 0.3 % (0-1.3); Eosinophils % 1.4 % (0-4.4); Hematocrit 36.7 % (36.0-45.0); Hemoglobin 12.2 g/dL (12.0-15.0); Lymphocytes % 25.2 % (15.3-44.8); MCH 29.4 pg (27.0-35.0); MCHC 33.1 g/dL (32.0-36.0); MCV 88.7 fL (80-100); MPV 8.7 fL (7.6-11.3); Monocytes % 10.3 % (3.3-12.3); Neutrophils % 62.8 % (41.7-73.7); Nucleated Red Blood Cells % 0.1 % (0-0); Platelets 237 thou/uL (152-406); RBC Red Blood Cell Count 4.14 M/uL (3.86-4.86); Red Cell Distribution Width 13.3 % (12.1-15.2); Specific Gravity 1.021 (1.005-1.030); Urine Bacteria <20 /HPF (<20); Urine Bilirubin NEGATIVE (Negative); Urine Blood 2+ (Negative); Urine Clarity Clear (Clear); Urine Color Light-Yellow (Yellow); Urine Culture Reflex Order NOT NEEDED; Urine Glucose NEGATIVE (Negative); Urine Ketones NEGATIVE (Negative); Urine Microscopic Reflex YN ORDER UMIC; Urine Mucus Slight /HPF (None Seen); Urine Nitrite NEGATIVE (Negative); Urine Protein NEGATIVE (Negative); Urine RBC <5 /HPF (None Seen); Urine Urobilinogen Normal (Normal); Urine WBC <5 /HPF (<5); Urine pH 6.5 (5.0-7.0)
[2024-01-13 18:26] LABS: Anion Gap 10.6 mEq/L (5.0-15.0); Potassium 3.6 mEq/L (3.5-5.1)
[2024-01-13] MEDS ORDERED: CEFTRIAXONE 1000 MG/VIAL ONE (18:35)
--- NOTE | 2024-01-13 19:11 | ER ---
Nurse's Notes [facility] Name: Brianda Zurita Age: 58 yrs Sex: Female : 1965 Arrival Date: 01/13/2024 Time: 16:48 Bed 8 Private MD: Diagnosis: UTI/ Urinary tract infection, site not specified Presentation: 01/12 16:57 Chief complaint: Patient states: Dysuria for a couple days, diagnosed with a UTI nj1 . Call from PCP today, told to come to ED for IV antibiotics due to multiple allergies to medications. Coronavirus screen: Vaccine status: Patient reports receiving the 2nd dose of the covid vaccine. Ebola Screen: Patient denies travel to an Ebola-affected area in the 21 days before illness onset. Initial Sepsis Screen: Does the patient meet any 2 criteria? No. Patient's initial sepsis screen is negative. Does the patient have a suspected source of infection? No. Patient's initial sepsis screen is negative. Risk Assessment: Do you want to hurt yourself or someone else? Patient reports no desire to harm self or others. Onset of symptoms was January 2024. 16:57 Method Of Arrival: Ambulatory [facility] 16:57 Acuity: MUSHTAQ 3 nj1 Triage Assessment: 17:20 General: Appears in no apparent distress. Behavior is calm, cooperative. dd2 Historical: - Allergies: 17:01 Ciprofloxacin; nj1 17:01 Nitrofurantoin; nj1 17:01 Macrobid; nj1 17:01 Azithromycin; [facility] 17:01 ondansetron; nj1 - PMHx: 17:01 Uterine CA; GERD; nj - PSHx: 17:01 Cholecystectomy; Hysterectomy; nj1 - Immunization history:: Client reports receiving the 2nd dose of the Covid vaccine. - Infectious Disease History:: Denies. - Social history:: Smoking status: Patient reports the use of cigarette tobacco products, smokes one pack cigarettes per day. Screenin:53 [facility] ED Fall Risk Assessment (Adult) History of falling in the last 3 months, dd2 including since admission No falls in past 3 months (0 pts) Confusion or Disorientation No (0 pts) Intoxicated or Sedated No (0 pts) Impaired Gait No (0 pts) Mobility Assist Device Used No (0 pt) Altered Elimination No (0 pt) Score/Fall Risk Level 0 - 2 = Low Risk Oriented to surroundings, Maintained a safe environment, Hourly rounding (assess needs \T\ fall precautionary measures) done. Abuse screen: Denies threats or abuse. Nutritional screening: No deficits noted. Tuberculosis screening: No symptoms or risk factors identified. Assessment: 17:53 General: Appears in no apparent distress. Behavior is calm, cooperative. Pain: Denies dd2 pain. Neuro: No deficits noted. Cardiovascular: No deficits noted. Respiratory: No deficits noted. GI: No deficits noted. : Reports burning with urination. EENT: No deficits noted. Derm: No deficits noted. Musculoskeletal: No deficits noted. 19:21 Reassessment: Patient appears in no apparent distress at this time. Patient and/or bm8 family updated on plan of care and expected duration. Pain level reassessed. Patient is alert, oriented x 3, equal unlabored respirations, skin warm/dry/pink. Patient denies pain at this time. Patient states feeling better. Vital Signs: 16:57 BP 130 / 75; Pulse 70; Resp 16; Temp 99; Pulse Ox 98% ; Weight 72.57 kg; Height 5 ft. 6 nj1 in. ; 17:53 BP 124 / 64; Pulse 61; Resp 15; Pulse Ox 97% ; dd2 19:21 BP 107 / 72; Pulse 62; Resp 16; Temp 99; Pulse Ox 100% ; Pain 0/10; bm8 16:57 Body Mass Index 25.82 (72.57 kg, 167.64 cm) nj1 19:21 Pain Scale: Adult bm8 Sheila Coma Score: 19:21 Eye Response: spontaneous(4). Motor Response: obeys commands(6). Verbal Response: bm8 oriented(5). Total: 15. ED Course: 16:51 Patient arrived in ED. mr 16:58 SantyClau FNP-C is [facility]. kb 16:58 Marcel Hui MD is Attending Physician. kb 17:01 Triage completed. nj1 17:04 Arm band placed on left wrist. nj1 17:40 KAREN MARCELO, UNVIA is Primary Nurse. dd2 17:53 Patient has correct armband on for positive identification. Bed in low position. Call dd2 light in reach. Side rails up X 1. Provided Education on: CALL LIGHT, IV, LABS. Door closed. Warm blanket given. 17:53 Client placed on continuous cardiac and pulse oximetry monitoring. NIBP monitoring dd2 applied. 17:53 Urinalysis w/ reflexes Sent. dd2 17:53 BMP Sent. dd2 17:53 CBC with Diff Sent. dd2 17:53 No provider procedures requiring assistance completed. Urine collected: clean catch dd2 specimen, cloudy. Inserted saline lock: 20 gauge in left antecubital area, using aseptic technique. Blood collected. Flushed with 10 mL NS. 19:21 IV discontinued, intact, bleeding controlled, No redness/swelling at site. Pressure bm8 dressing applied. Administered Medications: 18:46 Drug: Rocephin IV 1 grams IV at calculated rate once; Given slow IV push per pharmacy dd2 instructions Route: IV; Rate: calculated rate; Site: left antecubital; 19:22 Follow up: Response: No adverse reaction; IV Status: Completed infusion; IV Intake: [id number] Medication: 17:53 VIS not applicable for this client. dd2 Intake: 19:22 IV: 50ml; Total: 50ml. bm8 Outcome: 19:10 Discharge ordered by . rene 19:21 Discharged to home ambulatory, bm8 19:21 Condition: stable 19:21 Discharge instructions given to patient, Instructed on discharge instructions, follow up and referral plans. safety practices, Demonstrated understanding of instructions, follow-up care, medications, Prescriptions given X 1, 19:23 Patient left the ED. bm8 Signatures: Clau [place], MANPOWER DEVELOPMENT SPECIALIST-C MANPOWER DEVELOPMENT SPECIALIST-Ckb Lizette Kim, Reg Reg mr Krystina Brewer, NUVIA RN nj1 Foster La RN RN bm8 KAREN MARCELO RN RN dd2
--- NOTE | 2024-01-13 19:11 | EDPHYS ---
Physician Documentation [facility] Name: Brianda Zurita Age: 58 yrs Sex: Female : 1965 Arrival Date: 01/13/2024 Time: 16:48 Bed 8 Private MD: ED Physician Marcel Hui HPI: 01/12 17:10 This 58 yrs old Female presents to ER via Ambulatory with complaints of kb Urinary Problem. 17:10 Pt is a 58 year old female who presents for urinary frequency, urinating small amounts kb and dysuria that started 7 days ago. Denies fever, chills, flank pain, abd pain. States she was seen by PCP on and started on Augmentin for a UTI. States she got a call today about her urine culture results and was told to come to the ER for IV antibiotics because she is allergic to the other oral antibiotics that the bacteria is sensitive to. . Historical: - Allergies: 17:01 Ciprofloxacin; nj1 17:01 Nitrofurantoin; nj1 17:01 Macrobid; nj1 17:01 Azithromycin; nj1 17:01 ondansetron; nj1 - PMHx: 17:01 Uterine CA; GERD; nj1 - PSHx: 17:01 Cholecystectomy; Hysterectomy; nj1 - Immunization history:: Client reports receiving the 2nd dose of the Covid vaccine. - Infectious Disease History:: Denies. - Social history:: Smoking status: Patient reports the use of cigarette tobacco products, smokes one pack cigarettes per day. ROS: 17:56 Constitutional: As per HPI kb Exam: 17:56 Constitutional: This is a well developed, well nourished patient who is awake, alert, kb and in no acute distress. Head/Face: Normocephalic, atraumatic. ENT: Moist Mucous membranes Cardiovascular: Regular rate Respiratory: Respirations even and unlabored. No increased work of breathing. Talking in full sentences Abdomen/GI: Soft, non-tender. No distention Back: No spinal tenderness. No costovertebral tenderness. Full range of motion. Skin: Warm, dry with normal turgor. Normal color. MS/ Extremity: Pulses equal, no cyanosis. Neurovascular intact. Full, normal range of motion. Neuro: Awake and alert, GCS 15, oriented to person, place, time, and situation. Moves all extremities. Normal gait. Vital Signs: 16:57 BP 130 / 75; Pulse 70; Resp 16; Temp 99; Pulse Ox 98% ; Weight 72.57 kg; Height 5 ft. 6 nj1 in. ; 17:53 BP 124 / 64; Pulse 61; Resp 15; Pulse Ox 97% ; dd2 19:21 BP 107 / 72; Pulse 62; Resp 16; Temp 99; Pulse Ox 100% ; Pain 0/10; bm8 16:57 Body Mass Index 25.82 (72.57 kg, 167.64 cm) nj1 19:21 Pain Scale: Adult bm8 Sheila Coma Score: 19:21 Eye Response: spontaneous(4). Motor Response: obeys commands(6). Verbal Response: bm8 oriented(5). Total: 15. MDM: 16:59 Patient medically screened. 17:56 Data reviewed: vital signs, nurses notes. External Records Reviewed: Outpatient labs: urine culture and sensitivity report from PCP reviewed on pt's phone. . 19:08 Differential diagnosis: UTI, pyelonephritis, kidney stone. Test considered but Not kb performed: CT: ct considered but pt has no abd or CVA tenderness, afebrile, nontoxic in appearance. Counseling: I had a detailed discussion with the patient and/or guardian regarding the historical points, exam findings, and any diagnostic results supporting the discharge/admit diagnosis, lab results, the need for outpatient follow up, a family practitioner, to return to the emergency department if symptoms worsen or persist or if there are any questions or concerns that arise at home. 19:10 I considered the following discharge prescriptions or medication management in the emergency department Discussed results with pt. Due to pt's symptoms and positive culture report that was resulted today I will prescribe antibiotics. . 01/12 17:12 Order name: CBC with Diff; Complete Time: 18:07 kb 01/12 17:12 Order name: BMP; Complete Time: 18:28 kb 01/12 17:12 Order name: Urinalysis w/ reflexes; Complete Time: 18:07 kb 01/12 17:12 Order name: IV Start; Complete Time: 17:53 kb Administered Medications: 18:46 Drug: Rocephin IV 1 grams IV at calculated rate once; Given slow IV push per pharmacy dd2 instructions Route: IV; Rate: calculated rate; Site: left antecubital; 19:22 Follow up: Response: No adverse reaction; IV Status: Completed infusion; IV Intake: [id number] Disposition: 01/13 08:41 Co-signature as Attending Physician, Marcel Hui MD I reviewed the patient's care rn provided by the Advanced Practice Provider and agree with the diagnosis and treatment plan. Disposition Summary: 01/13/24 19:10 Discharge Ordered Notes: Location: Home kb Condition: Stable kb Diagnosis - UTI/ Urinary tract infection, site not specified kb Followup: kb - With: Emergency Department - When: As needed - Reason: Worsening of condition Followup: kb - With: Private Physician - When: 2 - 3 days - Reason: Recheck today's complaints, Continuance of care, Re-evaluation by your physician Discharge Instructions: - Discharge Summary Sheet kb - Urinary Tract Infection, Adult, [id number] kb Forms: - Medication Reconciliation Form kb - Antibiotic Education kb - Prescription Opioid Use kb - Patient Portal Instructions kb - Leadership Thank You Letter kb Prescriptions: - cefpodoxime 100 mg Oral Tablet - take 1 tablet ORAL route every 12 hours for 10 days take with food; 20 tablet; kb Refills: 0, Product Selection Permitted Signatures: Dispatcher [employer] EDMS Clau [place], INSURANCE PREMIUM AUDITOR-C INSURANCE PREMIUM AUDITOR-Ckb Marcel Hui MD MD rn Jaco, Norma RN RN nj1 KAREN MARCELO RN RN dd2 Foster La RN bm8 Corrections: (The following items were deleted from the chart) 01/12 17:12 17:12 CBC+H.LAB.BRZ ordered. EDMS EDMS 17:12 17:12 BASIC METABOLIC PANEL+C.LAB.BRZ ordered. EDMS EDMS 17:12 17:12 Urinalysis+U.LAB.BRZ ordered. EDMS EDMS
[2024-01-13 19:27] VITALS: TEMP 99
[2024-01-13 19:31] VITALS: BP 107/72; O2SAT 100
== END 2024-01-13 19:23 | disposition home or self-care (01) ==
LOC: ER 16:48
DX: N39.0 Urinary tract infection, site not specified (principal); F17.210 Nicotine dependence, cigarettes, uncomplicated; Z85.42 Personal history of malignant neoplasm of other parts of uterus
CPT/HCPCS: 96365; 85025; 81001; 80048; 36415; 99284; J0696

== ENCOUNTER 2024-02-17 19:08 | Emergency (ER) | payer BC, SELFPAY ==
--- OUTSIDE RECORDS SUMMARY | 2024-02-17 19:12 | XMS REPORT | Continuity of Care Document ---
Author Name Unknown Address [address] [facility] [address] [place] [address] [facility] Address [address] [facility] 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 Primary Care Physici an Unavailable Kayla Hardin Attending Clinician Unavaila April Dunne Attending Clinician Unavailable Ludin Joe) Attending Clinician UnavailRONEL Zhang Attending Clinician ADRIANNE Hillman Attending Clinician Unavailable LAURA PLASCENCIA Attending Clinician Unavailab le GC_BCSS_Heath_Dan1 Attending Clinician Unavaila Alma Duron Attending Clinician Unavailable GC_BVWC_South_J Attending Clinician Unavailable DON JOSHI Attending Clinician Unavailabl e LAB90 Attending Clinician Unavailable Ronel Noonan MD Somogyi Attending Clinician [phone] Arnie Smith Attending Clinician Unavailable Gaby Mccarthy Attending Clinician Unavailable April Acosta Admitting Clinician Unavailable Ludin Joe) Admitting Clinician Unavaila ble GC_BCSS_Heath_Dan1 Admitting Clinician Unavaila ble GC_BVWC_[facility]_J Admitting Clinician Unavailable Payers Payer Name Policy Type Policy Number Effective Date Expirati on Date Source Blue Cross Blue Shield of [place] 6 [id number] [facility] BCBS OON 4 [id number] 2022 00:00:00 [place] [id number] 2022 00:00:00 PHCS-IMAGINE 360 2 [id number] 2022 00:00:00 [place] [employer] - [place]UE[place]ICE - OPEN ACCESS [id number] 2022 00:00:00 2022 00:00:00 MULTIPLAN-GPA/PP O 2 [id number] 2021 00:00:00 Problems Condition Name Condition Details Condition Category Status Onset Date Resolution Date Last Treatment Date Treating Clinician Comments Source Abdominal pain Abdominal Pain Problem Active 10-15 00:00: 00 [facility] Vesicocoli c fistula Vesicocoli c Fistula Problem Active 10-15 00:00: 00 [facility] [id number] Prediabete s Problem [facility] [id number] Diverticul osis Problem [facility] [id number] Acute gastroente ritis Problem [facility] Gallstones Gallstones Problem [facility] Gastroesop hageal reflux disease Reflux Problem [facility] [id number] Gastropare sis Problem [facility] [id number] Abdominal cramping Problem [facility] Cancer Cancer Problem [facility] Irritable bowel Irritable bowel Problem [facility] [id number] Hyperchole sterolemia Problem [facility] Allergies, Adverse Reactions, Alerts Allergy Name Allergy Type Status Severity Reaction(s) Onset Date Inactive Date Treating Clinician Comments Source 2078 Drug allergy Active Unknown [facility] Social History Social Habit Start Date Stop Date Quantity Comments Source Sex Assigned At [facility] History of Tobacco Use Current Smoker [facility] Smoking Status Start Date Stop Date Source Unknown if ever smoked [facility]is on [facility] Current Smoker 2019-08-28 00:00:00 [facility] Medications Ordered Medication Name Filled Medication Name Start Date Stop Date Current Medication? Ordering Clinician Indication Dosage Frequency Signature (SIG) Comments Components Source Bactrim DS 800-160 MG Bactrim DS 800-160 MG 08-17 00:00: 00 No 1{table t} Bactrim DS 800-160 MG xRocephin 1 gm xRocephin 1 gm 08-19 00:00: 00 No 1g [facility] albuterol sulfate HFA 90 mcg/actuati on aerosol inhaler INHALE 2 PUFFS INTO THE LUNGS EVERY 4 HOURS NEEDED FOR WHEEZING albuterol sulfate HFA 90 mcg/actuati on aerosol inhaler INHALE 2 PUFFS INTO THE LUNGS EVERY 4 HOURS NEEDED FOR WHEEZING No albuterol sulfate HFA 90 mcg/actuat ion aerosol inhaler INHALE 2 PUFFS INTO THE LUNGS EVERY 4 HOURS NEEDED FOR WHEEZING [facility] amoxicillin 500 mg-potassiu m clavulanate 125 mg tablet TAKE 1 TABLET BY MOUTH TWICE DAILY amoxicillin 500 mg-potassiu m clavulanate 125 mg tablet TAKE 1 TABLET BY MOUTH TWICE DAILY No amoxicilli n 500 mg-potassi um clavulanat e 125 mg tablet TAKE 1 TABLET BY MOUTH TWICE [facility]ILY [facility] am[facility] 875 mg-potassiu m clavulanate 125 mg tablet TAKE 1 TABLET BY MOUTH EVERY 12 HOURS FOR 10 DAYS amoxicillin 875 mg-potassiu m clavulanate 125 mg tablet TAKE 1 TABLET BY MOUTH EVERY 12 HOURS FOR 10 DAYS No amoxicilli n 875 mg-potassi um clavulanat e 125 mg tablet TAKE 1 TABLET BY MOUTH EVERY 12 HOURS FOR 10 DAYS [facility] azithromyci n 250 mg tablet TAKE 2 [...] BY MOUTH DAILY FOR 4 DAYS THEREAFTER [facility] benzonatate 100 mg capsule TAKE 1 CAPSULE BY MOUTH EVERY 8 HOURS NEEDED FOR COUGH benzonatate 100 mg capsule TAKE 1 CAPSULE BY MOUTH EVERY 8 HOURS NEEDED FOR COUGH No benzonatat e 100 mg capsule TAKE 1 CAPSULE BY MOUTH EVERY 8 HOURS NEEDED FOR COUGH [facility] BinaxNOW COVID-19 Ag Self Test kit TEST [facility]ED [facility] Self Test kit TEST DIRECTED TODAY [facility] Ag Self Test kit TEST DIRECTED TODAY [facility] cefdinir 300 mg capsule TAKE 1 CAPSULE BY MOUTH TWICE DAILY FOR 10 DAYS cefdinir 300 mg capsule TAKE 1 CAPSULE BY MOUTH TWICE DAILY FOR 10 DAYS No cefdinir 300 mg capsule TAKE 1 CAPSULE BY MOUTH TWICE DAILY FOR 10 DAYS [facility] ciprofloxac in 250 mg tablet TAKE 1 TABLET BY MOUTH EVERY 12 HOURS FOR 7 DAYS ciprofloxac in 250 mg tablet TAKE 1 TABLET BY MOUTH EVERY 12 HOURS FOR 7 DAYS No ciprofloxa josé miguel 250 mg tablet TAKE 1 TABLET BY MOUTH EVERY 12 HOURS FOR 7 DAYS [facility] ciprofloxac in 500 mg tablet TAKE 1 TABLET BY MOUTH TWICE DAILY ciprofloxac in 500 mg tablet TAKE 1 TABLET BY MOUTH TWICE DAILY No ciprofloxa josé miguel 500 mg tablet TAKE 1 TABLET BY MOUTH TWICE DAILY [facility] diclofenac 1 % topical gel diclofenac 1 % topical gel No diclofenac 1 % topical gel [facility] diclofenac sodium 75 mg tablet,tristen yed release diclofenac sodium 75 mg tablet,tristen yed release No diclofenac sodium 75 mg tablet,del ayed release [facility] methylpredn isolone 4 mg tablets in a dose pack FOLLOW PACKAGE DIRECTIONS methylpredn isolone 4 mg tablets in a dose pack FOLLOW PACKAGE DIRECTIONS No methylpred nisolone 4 mg tablets in a dose pack FOLLOW PACKAGE DIRECTIONS [facility] ondansetron HCl 4 mg tablet ondansetron HCl 4 mg tablet No ondansetro n HCl 4 mg tablet [facility] phenazopyri dine 200 mg tablet TAKE 1 TABLET BY MOUTH EVERY 8 HOURS NEEDED FOR URINARY PROBLEMS FOR 3 DAYS phenazopyri dine 200 mg tablet TAKE 1 TABLET BY MOUTH EVERY 8 HOURS NEEDED FOR URINARY PROBLEMS FOR 3 DAYS No phenazopyr idine 200 mg tablet TAKE 1 TABLET BY MOUTH EVERY 8 HOURS NEEDED FOR URINARY PROBLEMS FOR 3 DAYS [facility] sulfamethox azole 800 mg-trimetho prim 160 mg tablet TAKE 1 TABLET BY MOUTH EVERY DAY BEFORE INTERCOURSE sulfamethox azole 800 mg-trimetho prim 160 mg tablet TAKE 1 TABLET BY MOUTH EVERY DAY BEFORE INTERCOURSE No sulfametho xazole 800 mg-trimeth oprim 160 mg tablet TAKE 1 TABLET BY MOUTH EVERY DAY BEFORE INTERCOURS E [facility] albuterol sulfate HFA 90 mcg/actuati on aerosol inhaler INHALE 2 PUFFS INTO THE LUNGS EVERY 4 HOURS NEEDED FOR WHEEZING albuterol sulfate HFA 90 mcg/actuati on aerosol inhaler INHALE 2 PUFFS INTO THE LUNGS EVERY 4 HOURS NEEDED FOR WHEEZING No albuterol sulfate HFA 90 mcg/actuat ion aerosol inhaler INHALE 2 PUFFS INTO THE LUNGS EVERY 4 HOURS NEEDED FOR WHEEZING [facility] amoxicillin 500 mg-potassiu m clavulanate 125 mg tablet TAKE 1 TABLET BY MOUTH TWICE DAILY amoxicillin 500 mg-potassiu m clavulanate 125 mg tablet TAKE 1 TABLET BY MOUTH TWICE DAILY No amoxicilli n 500 mg-potassi um clavulanat e 125 mg tablet TAKE 1 TABLET BY MOUTH TWICE DAILY [facility] amoxicillin 875 mg-potassiu m clavulanate 125 mg tablet TAKE 1 TABLET BY MOUTH EVERY 12 HOURS FOR 10 DAYS amoxicillin 875 mg-potassiu m clavulanate 125 mg tablet TAKE 1 TABLET BY MOUTH EVERY 12 HOURS FOR 10 DAYS No amoxicilli n 875 mg-potassi um clavulanat e 125 mg tablet TAKE 1 TABLET BY MOUTH EVERY 12 HOURS FOR 10 DAYS [facility] azithromyci n 250 mg tablet TAKE 2 [...] BY MOUTH DAILY FOR 4 DAYS THEREAFTER [facility] benzonatate 100 mg capsule TAKE 1 CAPSULE BY MOUTH EVERY 8 HOURS NEEDED FOR COUGH benzonatate 100 mg capsule TAKE 1 CAPSULE BY MOUTH EVERY 8 HOURS NEEDED FOR COUGH No benzonatat e 100 mg capsule TAKE 1 CAPSULE BY MOUTH EVERY 8 HOURS NEEDED FOR COUGH [facility] Ag Self Test kit TEST DIRECTED TODAY [facility] COVID-19 Ag Self Test kit TEST DIRECTED TODAY [facility] COVID-19 Ag Self Test kit TEST DIRECTED TODAY [facility] cefdinir 300 mg capsule TAKE 1 CAPSULE BY MOUTH TWICE DAILY FOR 10 DAYS cefdinir 300 mg capsule TAKE 1 CAPSULE BY MOUTH TWICE DAILY FOR 10 DAYS No cefdinir 300 mg capsule TAKE 1 CAPSULE BY MOUTH TWICE DAILY FOR 10 DAYS [facility] ciprofloxac in 250 mg tablet TAKE 1 TABLET BY MOUTH EVERY 12 HOURS FOR 7 DAYS ciprofloxac in 250 mg tablet TAKE 1 TABLET BY MOUTH EVERY 12 HOURS FOR 7 DAYS No ciprofloxa josé miguel 250 mg tablet TAKE 1 TABLET BY MOUTH EVERY 12 HOURS FOR 7 DAYS [facility] ciprofloxac in 500 mg tablet TAKE 1 TABLET BY MOUTH TWICE DAILY ciprofloxac in 500 mg tablet TAKE 1 TABLET BY MOUTH TWICE DAILY No ciprofloxa josé miguel 500 mg tablet TAKE 1 TABLET BY MOUTH TWICE DAILY [facility] diclofenac 1 % topical gel diclofenac 1 % topical gel No diclofenac 1 % topical gel [facility] diclofenac sodium 75 mg tablet,tristen yed release diclofenac sodium 75 mg tablet,tristen yed release No diclofenac sodium 75 mg tablet,del ayed release [facility] methylpredn isolone 4 mg tablets in a dose pack FOLLOW PACKAGE DIRECTIONS methylpredn isolone 4 mg tablets in a dose pack FOLLOW PACKAGE DIRECTIONS No methylpred nisolone 4 mg tablets in a dose pack FOLLOW PACKAGE DIRECTIONS [facility] ondansetron HCl 4 mg tablet ondansetron HCl 4 mg tablet No ondansetro n HCl 4 mg tablet [facility] phenazopyri dine 200 mg tablet TAKE 1 TABLET BY MOUTH EVERY 8 HOURS NEEDED FOR URINARY PROBLEMS FOR 3 DAYS phenazopyri dine 200 mg tablet TAKE 1 TABLET BY MOUTH EVERY 8 HOURS NEEDED FOR URINARY PROBLEMS FOR 3 DAYS No phenazopyr idine 200 mg tablet TAKE 1 TABLET BY MOUTH EVERY 8 HOURS NEEDED FOR URINARY PROBLEMS FOR 3 DAYS [facility] sulfamethox azole 800 mg-trimetho prim 160 mg tablet TAKE 1 TABLET BY MOUTH EVERY DAY BEFORE INTERCOURSE sulfamethox azole 800 mg-trimetho prim 160 mg tablet TAKE 1 TABLET BY MOUTH EVERY DAY BEFORE INTERCOURSE No sulfametho xazole 800 mg-trimeth oprim 160 mg tablet TAKE 1 TABLET BY MOUTH EVERY DAY BEFORE INTERCOURS E [facility] NexIUM NexIUM No 1{capsu le} NexIUM Procedures Procedure Date / Time Performed Performing Clinicia n Source CT Abdomen Pelvis WO Con 2022-12-04 20:25:00 [facility] XR Abdomen 2 View/1 View Cxr 2022-12-04 17:06:00 [facility] Hysterectomy (Ovaries Remain) [facility] Oral / Dental Surgery [facility] Plan of Care Planned Activity Planned Date Details Comments Source Instructions [facility] Start Date/Time End Date/Time Encounter Type Admission Type Attending Clinicians Care Facility Care Department Encounter ID Source 2024-01-09 08:06:00 Outpatient Kayla Byers [facility] [id number] [facility] 2022-12-05 10:44:00 Inpatient Urgent April Acosta [facility] Medical Service [id number] [facility] 2022-11-27 11:56:00 Inpatient Elective Ludin Joe) [facility] Surgical Service [id number] [facility] 2022-11-10 10:19:00 Outpatient Kayla Byers [facility] [id number] [facility] 2022-02-21 14:45:00 Outpatient Kayla Byers [facility] [id number] [facility] 2021-10-18 09:04:28 Outpatient Kayla Byers [facility] [id number] [facility] 2021-06-29 11:58:18 Outpatient Kayla Erwin [facility] [id number] [facility] 2024-01-09 00:00:00 2024-01-09 00:00:00 (TEL) [facility] [id number] [facility] 2023-05-31 16:00:00 2023-05-31 16:00:00 Outpatient RONEL NOONAN OLGA LIDIA EID [id number] [facility] 2023-05-29 00:00:00 2023-05-29 00:00:00 Outpatient IAN ADRIANNE OLGA LIDIA EID [id number] [facility] 2023-03-19 08:00:00 2023-03-19 08:00:00 Outpatient LAURA PLASCENCIA [facility] L[facility]IA EID [id number] [facility] 2022-12-11 00:00:00 2022-12-11 00:00:00 Outpatient GC_BCSS_How ell_Dan1 PRIV PRIV [id number] [facility] 2022-12-11 00:00:00 2022-12-11 00:00:00 Outpatient GC_BCSS_How ell_Dan1 PRIV PRIV [id number] [facility] 2022-12-04 15:13:00 2022-12-05 05:20:00 Emergency ER ArianeAlma [facility] [id number] [facility] 2022-11-15 00:00:00 2022-11-15 00:00:00 Outpatient SHAISTA ORNEL EID [id number] [facility] 2022-11-14 00:00:00 2022-11-14 00:00:00 Outpatient ADRIANNE SOSA [id number] [facility] 2022-10-23 00:00:00 2022-10-23 00:00:00 Outpatient GC_BCSS_How ell_Dan1 PRIV PRIV [id number] [facility] 2022-10-23 00:00:00 2022-10-23 00:00:00 Outpatient GC_BCSS_How ell_Dan1 PRIV PRIV [id number] [facility] 2022-10-23 00:00:00 2022-10-23 00:00:00 Outpatient GC_BCSS_How ell_Dan1 PRIV PRIV [id number] [facility] 2022-10-18 00:00:00 2022-10-18 00:00:00 Outpatient GC_BCSS_How anitha_Dan1 PRIV PRIV [id number] [facility] 2022-10-16 00:00:00 2022-10-16 00:00:00 Outpatient GC_BCSS_How anitha_Dan1 PRIV PRIV [id number] [facility] 2022-10-10 00:00:00 2022-10-10 00:00:00 Outpatient GC_BCSS_How anitha_Dan1 PRIV PRIV [id number] [facility] 2022-10-05 00:00:00 2022-10-05 00:00:00 Outpatient GC_BCSS_How anitha_Dan1 PRIV PRIV [id number] [facility] 2022-10-05 00:00:00 2022-10-05 00:00:00 Ludin Joe MD: [address] [place], [place] [id number] , Ph. [facility] - GC_BCSS_11s t Office [id number] [facility] 2022-10-04 00:00:00 2022-10-04 00:00:00 Outpatient GC_BCSS_How jaswantDan1 PRIV PRIV [id number] [facility] 2022-10-02 00:00:00 2022-10-02 00:00:00 Outpatient GC_BCSS_How anitha_Dan1 PRIV PRIV [id number] [facility] 2022-10-02 00:00:00 2022-10-02 00:00:00 Outpatient GC_BCSS_How anitha_Dan1 PRIV PRIV [id number] [facility] 2022-09-20 00:00:00 2022-09-20 00:00:00 Outpatient GC_BCSS_How anitha_Dan1 PRIV PRIV [id number] [facility] 2022-06-16 00:00:00 2022-06-16 00:00:00 Outpatient RONEL NOONAN [id number] Olga Lidia [facility] 2022-05-08 00:00:00 2022-05-08 00:00:00 Outpatient GC_BVWC_Sou th_J PRIV [facility] [id number] [facility] 2022-04-25 00:00:00 2022-04-25 00:00:00 Outpatient RONEL NOONAN [id number] [facility] 2022-04-13 00:00:00 2022-04-13 00:00:00 Outpatient PREZAAnurag ADRIANNE EID [id number] [facility] 2022-03-13 12:20:00 2022-03-13 12:20:00 Outpatient OLGA LIDIA EID [id number] [facility] 2022-03-13 00:00:00 2022-03-13 00:00:00 Outpatient RONEL NOONAN [id number] [facility] 2022-02-17 00:00:00 2022-02-17 00:00:00 Outpatient RONEL NOONAN [id number] [facility] 2022-02-16 13:00:00 2022-02-16 13:00:00 Outpatient MADELYN DON EID [id number] [facility] 2022-02-16 11:25:00 2022-02-16 11:25:00 Outpatient JOSEPH EID [id number] [facility] 2022-02-16 00:00:00 2022-02-16 00:00:00 Outpatient PREZAS, ADRIANNE EID [id number] [facility] 2022-02-16 00:00:00 2022-02-16 00:00:00 Outpatient PREZAS, ADRIANNE EID [id number] [facility] 2022-02-15 00:00:00 2022-02-15 00:00:00 Outpatient PREZAS, ADRIANNE EID [id number] Olga Lidia Seybold 2022-02-02 00:00:00 2022-02-02 00:00:00 Outpatient RONEL NOONAN [id number] [facility] 2022-02-01 10:05:00 2022-02-01 10:05:00 Outpatient LAB90 OLGA LIDIA ESQUIVELSEY [id number] Olga Lidia [facility] 2022-02-01 09:30:00 2022-02-01 09:45:00 Office Visit Ronel Noonan Brandon [id number] [facility] Lidia [facility] 2022-01-30 00:00:00 2022-01-30 00:00:00 Outpatient RONEL NOONAN OLGA LIDIA [id number] Ol[facility] Lidia [facility] 2022-01-17 10:45:00 2022-01-17 11:00:00 Office Visit Ronel Noonan [place] [id number] Olga Lidia Jordancuca 2022-01-16 16:15:00 2022-01-16 16:15:00 Outpatient RONEL NOONAN OLGA LIDIA [id number] Olga Lidia Carson 2022-01-16 00:00:00 2022-01-16 00:00:00 Outpatient RONEL NOONAN OLGA LIDIA EID [id number] [facility] 2022-01-02 00:00:00 2022-01-02 00:00:00 Outpatient RONEL NOONANLUIS EID [id number] [facility] 2022-01-02 00:00:00 2022-01-02 00:00:00 Outpatient RONEL NOONANLUIS EID [id number] [facility] 2021-12-29 14:50:00 2021-12-29 14:50:00 Outpatient LABKimberly ESQUIVELLUIS EID [id number] [facility] 2021-12-29 14:00:00 2021-12-29 14:15:00 Office Visit Ronel Noonan [place] [id number] [facility] 2021-03-21 01:29:00 2021-03-21 01:29:00 Emergency ER Arnie Smith STLSJX ST[facility] [id number] [facility] 2019-09-01 11:20:00 2019-09-01 11:20:00 [facility] [id number] [facility] 2019-08-28 08:20:00 2019-08-28 08:20:00 [facility] [id number] [facility] 2019-08-27 14:39:00 2019-08-27 14:39:00 Out[facility] [id number] [facility] 2019-08-26 15:45:00 2019-08-26 15:45:00 Out[facility] [id number] [facility] 2019-08-26 14:00:00 2019-08-26 14:00:00 Out[facility] [id number] [facility] 2019-08-26 11:16:00 2019-08-26 11:16:00 Out[facility] [id number] [facility] 2019-08-07 15:52:00 2019-08-07 15:52:00 Outpatient Gaby Mccarthy CHVishnu [id number] [facility] 2019-06-24 15:00:00 2019-06-24 15:00:00 Outpatient Gaby Mccarthy CHW [id number] [facility] 2019-01-31 08:40:00 2019-01-31 08:40:00 Out[facility] [id number] [facility] Results Test Description Test Time Test Comments Results Result Co mments Source HIndications to order a Urinalysis: AlteredMental st.lethargyUrine Source: Urine Avery [id number] 18:54:00* Test Item Value Reference Range Interpretation Comme nts Urinalysis (test code = UACRFLXNO) No HIndications to order a Urinalysis: [facility] Source: Urine Avery CatheterUrine [id number] 18:29:00* Test Item Value Reference Range Interpretation Comme [facility] Urine Color (test code = 5778-6) Yellow Yellow [facility] [id number] 18:29:00* Test Item Value Reference Range Interpretation Comme [facility] Urine Clarity (test code = 44527-8) Hazy Clear [facility]rine by Test strip 2022-12-04 18:29:00* Test Item Value Reference Range Interpretation Comme [facility] Urine Specific [place] (test code = 5811-5) 1.015 1.005-1.030 [facility] pH measurement by automated test strip 2022-12-04 18:29:00* Test Item Value Reference Range Interpretation Comme [facility] Urine pH (test code = 50292-4) 7.0 5.0-9.0 [facility] leukocyte esterase detection by automated test [id number] 18:29:00* Test Item Value Reference Range Interpretation Comme [facility] Urine Leukocyte Esterase (te st code = 93439-1) Trace Negative [facility] [Presence] in Urine by Test strip 2022-12-04 18:29:00* Test Item Value Reference Range Interpretation Comme [facility] Urine Nitrite (test code = 5802-4) Negative Negative [facility] protein measurement by automated test strip (mass/volume)2022-12-04 18:29:00* Test Item Value Reference Range Interpretation Comme [facility] Urine Protein (test code = 58700-7) Negative mg/dL Neg-Trace [facility] glucose measurement by test strip (mass/volume)2022-12-04 18:29:00* Test Item Value Reference Range Interpretation Comme [facility] Urine Glucose (UA) (test cod e = 5792-7) Negative mg/dL Negative [facility] ketones measurement by automated test strip (mass/volume)2022-12-04 18:29:00* Test Item Value Reference Range Interpretation Comme nts Urine Ketones (test code = 15404-4) 80 mg/dL Negative [facility] urobilinogen measurement (units/volume) by test [id number] 18:29:00* Test Item Value Reference Range Interpretation Comme nts Urine Urobilinogen (test cod e = 74207-0) 0.2 mg/dL Less than 2 [facility] total bilirubin detection by automated test [id number] 18:29:00* Test Item Value Reference Range Interpretation Comme nts Urine Bilirubin (test code = 80252-4) Negative Negative [facility] hemoglobin detection by automated test [id number] 18:29:00* Test Item Value Reference Range Interpretation Comme nts Urine Blood (test code = 32188-8) Large Negative [facility] sediment erythrocyte count by microscopy (number/high power field)2022-12-04 18:29:00* Test Item Value Reference Range Interpretation Comme nts Urine RBC (test code = 81654-4) 21-50 HPF 0-3 [facility] detection in urine sediment by light [id number] 18:29:00* Test Item Value Reference Range Interpretation Comme nts Urine WBC (test code = 85516-9) 0-3 HPF 0-3 [facility] HospitalSquamous epithelial cells detection in urine sediment by light [id number] 18:29:00* Test Item Value Reference Range Interpretation Comme nts Urine Squamous Epithelial Ce lls (test code = 09294-3) 0-3 HPF 0-3 [facility]acteria detection in urine sediment by light [id number] 18:29:00* Test Item Value Reference Range Interpretation Comme nts Urine Bacteria (test code = 59283-0) Rare-Few HPF None Seen [facility] HospitalMucus detection in urine sediment by light [id number] 18:29:00* Test Item Value Reference Range Interpretation Comme nts Urine Mucus (test code = 8247-9) Few LPF See_Comment [Automated messa ge] The system which generated this result transmitted reference range: <2+. The reference range was not used to interpret this result as normal/abnormal. [facility] Not [id number] 18:29:00* Test Item Value Reference Range Interpretation Comme [facility] Urine Culture Reflexed (test code = LOINC) No [facility] 18:13:00* Test Item Value Reference Range Interpretation [...] for Estimated GFR: Greater than 90 mL/min/1.73 s0Uatoapjt eGFR is based on the CKD-EPI 2020 [...] = ALT) 110 U/L 8-55 H S UDhvrtcaaq2209-79-01 18:13:00* Test Item Value Reference Range Interpretation Comme nts Chemistry (test code = LIP) 7 U/L 8-78 L S SKxgheaqrrh3425-63-43 17:53:00* Test Item Value Reference Range Interpretation [...] Item Value Reference Range Interpretation Comme nts Sodium Level (test code = 2951-2) 140 mmol/L 136-145 [facility] or plasma potassium measurement (moles/volume)2022-12-04 17:40:00* Test Item Value Reference Range Interpretation Comme [facility] Potassium Level (test code = 2823-3) 4.0 mmol/L 3.5-5.1 [facility] or plasma chloride measurement (moles/volume)2022-12-04 17:40:00* Test Item Value Reference Range Interpretation Comme nts Chloride Level (test code = 2075-0) 102 mmol/L 98-107 [facility] or plasma carbon dioxide, total measurement (moles/volume)2022-12-04 17:40:00* Test Item Value Reference Range Interpretation Comme [facility] Carbon Dioxide Level (test c ode = 2027-9) 28 mmol/L 22-29 [facility] or plasma anion [id number] 17:40:00* Test Item Value Reference Range Interpretation Comme [facility] Anion Gap (test code = 90892-2) 14 mmol/L 10-20 [facility] urea nitrogen measurement (mass/volume)2022-12-04 17:40:00* Test Item Value Reference Range Interpretation Comme [facility] Blood Urea Nitrogen (test co de = 3094-0) 6 mg/dL 9.8-20.1 [facility] or plasma creatinine measurement (mass/volume)2022-12-04 17:40:00* Test Item Value Reference Range Interpretation Comme [facility] Creatinine (test code = 2160-0) 0.68 mg/dL 0.6-1.1 [facility] CareGlomerular filtration rate/1.73 sq M.predicted [Volume Rate/Area] in Serum, Plasma [id number] 17:40:00* Test Item Value Reference Range Interpretation Comme nts Estimated GFR (CKD-EPI 2020) (test code = 37577-3) 102 [facility] CareGlucose [Mass/volume] in Serum or Plasma 2022-12-04 17:40:00* Test Item Value Reference Range Interpretation Comme nts Glucose Level (test code = 2345-7) 96 mg/dL 70-105 [facility] plasma calcium measurement (mass/volume)2022-12-04 17:40:00* Test Item Value Reference Range Interpretation Comme [facility] Calcium Level (test code = 80950-7) 9.3 mg/dL 7.8-10.44 [facility] or plasma total bilirubin measurement (mass/volume)2022-12-04 17:40:00* Test Item Value Reference Range Interpretation Comme [facility] Total Bilirubin (test code = 1975-2) 0.3 mg/dL 0.2-1.2 [facility] or plasma protein measurement (mass/volume)2022-12-04 17:40:00* Test Item Value Reference Range Interpretation Comme [facility] Serum Total Protein (test co de = 2885-2) 7.0 g/dL 6.0-8.3 [facility] or plasma albumin measurement by bromocresol green (BCG) dye binding method ([id number] 17:40:00* Test Item Value Reference Range Interpretation Comme [facility] Albumin (test code = 22241-3) 3.8 g/dL 3.5-5.0 [facility] CareGlobulin [Mass/volume] in Serum by calculation 2022-12-04 17:40:00* Test Item Value Reference Range Interpretation Comme [facility] Globulin (test code = 57206-9) 3.2 g/dL 2.4-3.5 [facility]/Globulin [Mass Ratio] in Serum or Plasma 2022-12-04 17:40:00* Test Item Value Reference Range Interpretation Comme [facility] Albumin/Globulin Ratio (test code = 1759-0) 1.2 g/dL 1.2-2.2 [facility] HospitalAlkaline phosphatase [Enzymatic activity/volume] in Serum or Nkfsbm6247-36-93 17:40:00* Test Item Value Reference Range Interpretation Comme [facility] Alkaline Phosphatase (test c ode = 6768-6) 76 U/L 40-110 [facility] plasma aspartate aminotransferase measurement (enzymatic activity/volume)2022-12-04 17:40:00* Test Item Value Reference Range Interpretation Comme nts Aspartate Amino Transf (AST/ SGOT) (test code = 1920-8) 67 U/L 5-34 [facility] or plasma alanine aminotransferase measurement without P-5'-P (enzymatic xmilwm0426-28-63 17:40:00* Test Item Value Reference Range Interpretation Comme nts Alanine Aminotransferase (AL T/SGPT) (test code = 1744-2) 110 U/L 8-55 [facility] or plasma lipase measurement (enzymatic activity/volume)2022-12-04 17:40:00* Test Item Value Reference Range Interpretation Comme [facility] Lipase (test code = 3040-3) 7 U/L 8-78 [facility]Leukocytes [#/volume] in Blood by Automated iqehg9561-80-06 17:40:00* Test Item Value Reference Range Interpretation Comme [facility] White Blood Count (test code = 6690-2) 9.9 10x3/uL 4.8-10.8 [facility] erythrocytes automated count (number/volume)2022-12-04 17:40:00* Test Item Value Reference Range Interpretation Comme [facility] Red Blood Count (test code = 789-8) 3.82 mill/uL 4.20-5.40 [facility] hemoglobin measurement (mass/volume) 2022-12-04 17:40:00* Test Item Value Reference Range Interpretation Comme [facility] Hemoglobin (test code = 718-7) 11.3 g/dL 12.0-16.0 [facility] erythrocyte mean corpuscular volume 2022-12-04 17:40:00* Test Item Value Reference Range Interpretation Comme [facility] Mean Corpuscular Volume (preeti t code = 787-2) 92.2 fl 78.0-98.0 [facility] erythrocyte mean corpuscular hemoglobin (mass per erythrocyte)2022-12-04 17:40:00* Test Item Value Reference Range Interpretation Comme [facility] Mean Corpuscular Hemoglobin (test code = 785-6) 29.7 pg 27.0-31.0 [facility] CareAutomated erythrocyte mean corpuscular hemoglobin concentration measurement (mass/[id number] 17:40:00* Test Item Value Reference Range Interpretation Comme nts Mean Corpuscular Hemoglobin Concent (test code = 786-4) 32.2 g/dL 32.0-36.0 [facility] HospitalAutec[facility]ed erythrocyte distribution width ratio 2022-12-04 17:40:00* Test Item Value Reference Range Interpretation Comme [facility] Red Cell Distribution Width (test code = 788-0) 12.5 % 11.5-14.5 [facility] blood platelet count (count/volume) 2022-12-04 17:40:00* Test Item Value Reference Range Interpretation Comme [facility] Platelet Count (test code = 777-3) 332 10x3/uL 130-400 [facility] blood platelet mean oycsxx4687-36-61 17:40:00* Test Item Value Reference Range Interpretation Comme [facility] Mean Platelet Volume (test c ode = 67329-7) 9.5 fL 7.4-10.4 [facility] blood neutrophils/100 leukocytes 2022-12-04 17:40:00* Test Item Value Reference Range Interpretation Comme [facility] Neutrophils % (test code = 770-8) 69.8 % 42.0-75.0 [facility] HospitalLymphocytes/100 leukocytes in Blood by Automated mbxdx0759-57-12 17:40:00* Test Item Value Reference Range Interpretation Comme [facility] Lymphocytes % (test code = 736-9) 16.4 % 21.0-51.0 [facility] blood monocytes/100 leukocytes 2022-12-04 17:40:00* Test Item Value Reference Range Interpretation Comme [facility] Monocytes % (test code = 5905-5) 11.0 % 0.0-10.0 [facility] blood eosinophils/100 leukocytes 2022-12-04 17:40:00* Test Item Value Reference Range Interpretation Comme [facility] Eosinophils % (test code = 713-8) 1.5 % 0.0-10.0 [facility] blood basophils/100 leukocytes 2022-12-04 17:40:00* Test Item Value Reference Range Interpretation Comme [facility] Basophils % (test code = 706-2) 1.4 % 0.0-1.0 [facility] neutrophils automated count (number/volume)2022-12-04 17:40:00* Test Item Value Reference Range Interpretation Comme [facility] Neutrophils # (test code = 751-8) 6.9 thou/uL 1.40-6.50 [facility] HospitalLymphocytes [#/volume] in Blood by Automated gnvsy8640-89-32 17:40:00* Test Item Value Reference Range Interpretation Comme [facility] Lymphocytes # (test code = 731-0) 1.6 thou/uL 1.20-3.40 [facility] monocytes automated count (number/volume) 2022-12-04 17:40:00* Test Item Value Reference Range Interpretation Comme [facility] Monocytes # (test code = 742-7) 1.1 thou/uL 0.11-0.59 [facility] eosinophils automated count (count/volume) 2022-12-04 17:40:00* Test Item Value Reference Range Interpretation Comme [facility] Eosinophils # (test code = 711-2) 0.1 thou/uL 0.0-0.7 [facility] blood basophil count (count/volume) 2022-12-04 17:40:00* Test Item Value Reference Range Interpretation Comme [facility] Basophils # (test code = 704-7) 0.1 thou/uL 0.0-0.2 [facility] CareGlucose Pfpgrdnasay5405-60-37 20:10:00* Test Item Value Reference Range Interpretation Comme [facility] Glucose Fingerstick (test code = WGLUC) 94 mg/dL 70-115 RN TEAM LEADER Ki Nichole RN or Hemoglobin and Jwcdjsbmgt4588-69-74 07:45:00* Test Item Value Reference Range Interpretation Comme [facility] Hemoglobin (test code = HGBT) 10.5 g/dL 12.2-14.8 L Hematocrit (test code = HCTT) 33.5 % 36.5-44.4 L Basic Metabolic Tejro1591-90-99 07:45:00* Test Item Value Reference Range Interpretation Comme nts SODIUM (test code = NA) 140.0 mmol/L [...] a race coefficient. Additional information canbe found at:[email or web address] ([email or web address]) [Automated message] The system which generated this result transmitted reference range: >=90 ml/min/1.73m2. The reference range was not used to interpret this result as normal/abnormal. BUN/Creatinine Ratio (test code = BCRATIO) 14 ratio 10-20 N Glucose (test code = GLU) 87 mg/dL 74-106 N Osmolality,Calculate d (test code = OSMOC) 287.5 Calcium (test code = CA) 8.6 mg/dL 8.3-10.6 N Glucose Ulvycyjdgxe8004-19-33 21:47:00* Test Item Value Reference Range Interpretation Comme nts Glucose Fingerstick (test code = WGLUC) 182 mg/dL 70-115 RN TEAM LEADER Ki Nichole RN or XR voiding cystourethrogrm (p)[facility] [address] [place] [address] Patient Name: Brianda Ramirez Medical Record#: [id number] Address: [address] [place] [address] City/State/Zip: [place] [address]: April Acosta MD Insurance: [employer] EXC HANGE /Age/Sex: 1965 57/F Self Pay Admit/Reg Date: 12/05/[address]: Ludin Joe MD Location: [id number] PCP: Siva Kirby NP Date of Service: 12/06/22 Order (s): XR voiding cystourethrogrm (p) CPT Code: 35418 Report Number: [id number] Reason for Exam: h/o colovessicle fistula Clinical history: Colovesical fistula. Location: R 16.FINDINGS: Following administration of the risks, benefits, and alternatives to the procedure, the patient gave oral and written consent. Then, using sterile technique, a total of 150 mL contrast was instilled into the bladder under fluoroscopy. The bladder demonstrates a normal configuration. No vesicoureteral reflux is noted during the course of this examination. There is no evidence of fistula.There is complete emptying of the bladder on the postvoid image. A total of 1.13 minutes fluoroscopy time is utilized. Reference air kerma is 39.1 mGy. IMPRESSION: 1. No abnormalities are identified. Electronically signed by: Adrianne Rothman MD 12/06/2022 3:12 PM CDT Dictated By: Adrianne Rothman MD 12/06/22 142 Signed By: Adrianne Rtohman MD 12/06/22 1514 TD/TT: 12/06/22 142 Tech: [id number] cc: [id number]; [id number]* Ludin Joe MD; Siva Kirby. NlXR small bowel follow thru (SBSt. [facility] [address] [place] [address] Patient Name: Brianda Ramirez Medical Record#: [id number] Address: [address] [place] [address] City/State/Zip: [place] [address]: April Acosta MD Phone: Insurance: [employer] BLUE ADVANTAGE EXC HANGE /Age/Sex: 1965/57/F Self Pay Admit/Reg Date: 12/05/[address]: Ludin Joe MD [id number] PCP: Siva Kirby NP Date of Service: 12/05/22 Order (s): XR small bowel follow thru (SB CPT Code: 87862 Report Number: [id number] Reason for Exam: abdominal distention EXAMINATION: XR small bowel follow thru (SB CLINICAL INDICATION: Female, 57 years old with abdominal distention TECHNIQUE: Quantitative Manager KUB is performed. Patient was subsequently administered oral contrast, serial KUB examinations are performed until contrast reachesthe colon. Spot images are obtained as needed. COMPARISON: None TOTAL FLUOROSCOPY TIME: 0 seconds TOTAL NUMBER OF IMAGES: 7 FINDINGS: Quantitative Manager KUB demonstrates mild gaseous distention of the stomach andsmall bowel. Oral contrast was administered, opacifying the stomach. The duodenal sweep is unremarkable. There is prominence of thejejunum with mild [...] PM CDT Dictated By: Enmanuel Pyle MD 0 12/05/22 123 Signed By: Enmanuel Pyle MD 12/05/221811 TD/TT: 12/05/22 123 Tech: PTN01 cc: [id number]; [id number]* Ludin Joe MD; Siva Kirby. CT Abdomen Pelvis WO Con [facility]: REAZ RAMIREZPCION : 1965 [facility] Pt Name: BRIANDA RAMIREZ Cross Phys: [place] [address] : 1965 Age: 57 SEX:F [phone] Exam Date: 12/04/22 Status: REG ER Acct: [id number] Loc: [facility] Pt Unit #: [id number] Report #: [id number] CC: Alma Bueno MD PULSECHECKSJX:[id number] CAT SCAN REPORT Report Status: Signed Order # Category/Exam [id number] CT/CT Abdomen Pelvis WO Con ([id number]): . Results CT Abdomen Pelvis WO Con: 12/04/2022 8:35 PM HISTORY: Small bowel obstruction. COMPARISON: None. TECHNIQUE: Multiple contiguous axial images were obtained and a CT of the abdomen and pelvis without IV contrast. Coronal and sagittal reformats were performed. FINDINGS: This examination is limited for the evaluation of solid organs and vascular structur es due to the lack of intravenous contrast. [...] Transcribed Date/Time:XR Abdomen 2 View/1 [facility] : 1965 [facility] BRIANDA RAMIREZ [address] Cross Phys: [place] [address] : 1965 Age: 57 SEX:F [phone] Exam Date: 12/04/22 Status: REG ER Acct: [id number] Loc: [facility] Pt Unit #: [id number] Report #: [id number] CC: Alma Bueno MD PULSECHECKSJX:[id number] IMAGING SERVICES REPORT Report Status: Signed Order # Category/Exam [id number] RAD/XR Abdomen 2 View/1 View Cxr ([id number]): . Results Exam: Single view of the [...] Signed Date/Time: 12/04/221803 Technologist: NANCY Dictated Date/Time: 12/04/22 180 Transcribed Date/Time:XR MAR[facility]t. [facility] [address] [place] [address] Patient Name: Brianda Ramirez Medical Record#: [id number] Address: [address] [place] [address] City/State/Zip: [place] [address]: Ludin PINZON) Heath Montelongo Insurance: [employer] EXC HANGE /Age/Sex: 1965/57/F Self Pay Admit/Reg Date: 11/27/[address]: April Acosta MD Location: [id number]/[id number] PCP: Siva Kirby NP Date of Service: 11/30/22 Order (s): XR KUB CPT Code: 04519 Report Number: [id number] Reason for Exam: sbo EXAM: Abdominal x-ray, 1 view Dictation location: E5 INDICATION: Small bowel obstruction COMPARISON: Abdominal radiographs on 11/29/2022 DISCUSSION: A frontal view of the abdomen is submitted.Several mildly dilated air-filled small bowel loops are noted. Bowel gas is present within the colon to the level of the rectum. No gross evidence for intra-abdominal free air is seen. Numerous abdomi nal surgical clips are noted. No acutebony abnormalities are identified. IMPRESSION: Findings are consistent with ileus or partial small bowel obstruction. No gross evidence of intra-abdominal free air. Electronically signed by: Igor Newman MD 11/30/2022 8:57 AM CDT Dictated By: Igor Newman MD 11/30/22 0643 Signed By: Igor Newman MD 11/30/22 0859 TD/TT: 643 Tech: AA181 cc: [id number]; [email or web address]* Siva Kirby. Loly; MAUREEN Ochoa. [facility] [address] [place] [address] Patient Name: Brianda Ramirez Medical Record#: [id number] Address: [address] [place] [address] City/State/Zip: [place] [address]: Ludin PINZON) Heath Montelongo Insurance: BS BLUE ADVANTAGE EXC HANGE /Age/Sex: 1965/57/F Self Pay Admit/Reg Date: 11/27/[address]: April Acosta MD [id number] PCP: Siva Kirby NP Date of Service: 11/29/22 Order (s): XR KUB CPT Code: 75618 Report Number: [id number] Reason for Exam: ileus vs SBO Abdomen (KUB) History: ileus vs SBO Comparison: November 29, the same day Location: 5 Number of images: 2 There are dilated air-filled loops of small bowel. The bones appear unchanged. No pathologic calcifications are identified. IMPRESSION: The previously identified nasogastric tube is no longer demonstrated on the current images. There continue to be dilated air-filled loops of small bowel, which could be due to a small bowel obstruction. Electronically signed by: Nory ZHAO 11/29/2022 5:44 PM CDT Dictated By: Louie Calderon MD 11/29/221705 Signed By: Louie Calderon MD 11/29/221745 TD/TT: 11/29/221705 Tech: LCA06 cc: [id number]; [id number]* Siva Kirby. ; April Acosta MD XR [facility]St[facility] [address] [place] [address] Patient Name: Brianda Ramirez Medical Record#: [id number] Address: [address] [place] [address] [address] City/State/Zip: [place] [address]: Ludin PINZON) Heath Montelongo Insurance: BS BL[employer] ADVANTAGE EXC HANGE /Age/Sex: 1965/57/F Self Pay Admit/RegDate: 11/27/[address]: Alberto Doss MD Location: SJM5S/OD256-[id number] PCP: Siva Kirby NP Date of Service: 11/29/22 Order (s): XR KUB CPT Code: 24720 Report Number: [id number] Reason for Exam: NGT Location: H3 KUB of the abdomen, 11/29/2022 CLINICAL HISTORY: Placement of nasogastric feeding tube COMPARISON EXAM: None relevant to this exam A nasogastric feeding tube is seen with the tip in the body of the stomach. The port of the nasogastric tube appears situated distal to the esophagogastric junction. There is no pneumoperitoneum. There is preferential small bowel obstruction and concern for a distal small bowelobstruction. Multiple surgical clips are identified. Electronically signed by: Virginie Son MD 11/29/2022 5:29 AM CDT Dictated By: Virginie Govea MD 11/29/22 0518 Signed By: Virginie Son MD 11/29/22 0531 TD/TT: 11/29/2218 Tech: [id number] cc: [id number]; [id number]* Siva Kirby. Nl; Alberto Doss MD
--- NOTE | 2024-02-17 19:40 | EDPHYS ---
Physician Documentation [facility] Name: Brianda Zurita Age: 58 yrs Sex: Female : 1965 Arrival Date: 02/17/2024 Time: 19:08 Bed 6 Private MD: ED Physician Jimmie Robles HPI: 02/16 20:17 This 58 yrs old Female presents to ER via Ambulatory with complaints of Toe rt problem. 20:17 Patient presents to the ED with redness, pain to the right fourth and fifth toes. rt Patient was seen at [facility] about 4 days ago, was prescribed clotrimazole, fluconazole for tinea pedis. States that the redness is worsened today. Denies fever, chills, acute complaints, symptoms are mild in severity, no other aggravating or alleviating factors. Historical: - Allergies: 19:23 Azithromycin; tl4 19:23 Ciprofloxacin; tl4 19:23 Macrobid; tl4 19:23 Nitrofurantoin; tl4 19:23 ondansetron; tl4 - PMHx: 19:23 GERD; Uterine CA; tl4 - PSHx: 19:23 Cholecystectomy; hysterectomy; tl4 - Immunization history:: Adult Immunizations unknown. - Infectious Disease History:: Denies. - Social history:: Smoking status: Patient reports the use of cigarette tobacco products, smokes one-half pack cigarettes per day. - Family history:: not pertinent. ROS: 20:17 Constitutional: Negative for fever, chills, and weight loss, Cardiovascular: Negative rt for chest pain, palpitations, and edema, Respiratory: Negative for shortness of breath, cough, wheezing, and pleuritic chest pain, Abdomen/GI: Negative for abdominal pain, nausea, vomiting, diarrhea, and constipation, Neuro: Negative for headache, weakness, numbness, tingling, and seizure, 20:17 Skin: Positive for Redness, blister, Exam: 20:17 Constitutional: This is a well developed, well nourished patient who is awake, alert, rt and in no acute distress. Head/Face: Normocephalic, atraumatic. Neuro: Awake and alert, GCS 15, oriented to person, place, time, and situation. Cranial nerves II-XII grossly intact. Motor strength 5/5 in all extremities. Sensory grossly intact. Cerebellar exam normal. Normal gait. 20:17 Musculoskeletal/extremity: Mild erythema noted in between the fourth and fifth digits. There is macerated skin at the area. No purulence, malodorous discharge. Pulses, motor, sensation intact. Vital Signs: 19:19 BP 129 / 94; Pulse 74; Resp 20; Temp 98.6(TE); Pulse Ox 100% on R/A; Weight 70.76 kg; tl4 Height 5 ft. 6 in. ; Pain 8/10; 19:19 Body Mass Index 25.18 (70.76 kg, 167.64 cm) tl4 19:19 Pain Scale: Adult tl4 MDM: 19:30 Patient medically screened. rt 20:17 Differential Diagnosis Tinea pedis, cellulitis, diabetes. Data reviewed: vital signs, rt nurses notes, lab test result(s). Test considered but Not performed: X-ray: Patient with only minimal erythema. Very low suspicion for an osteomyelitis. Do not believe that x-ray, lab work is indicated. Counseling: I had a detailed discussion with the patient and/or guardian regarding the historical points, exam findings, and any diagnostic results supporting the discharge/admit diagnosis, the need for outpatient follow up. Administered Medications: 19:44 Drug: Amoxicillin-Clavulanate PO 875 mg PO once Route: PO; bm8 19:44 Follow up: Response: Medication Administered at Departure 8 Disposition Summary: 02/17/24 19:40 Discharge Ordered Notes: Location: Home rt Problem: new rt Symptoms: are unchanged rt Condition: Stable rt Diagnosis - Tinea pedis rt - Cellulitis to right fifth toe rt Followup: rt - With: Private Physician - When: 2 - 3 days - Reason: Discharge Instructions: - Discharge Summary Sheet rt - Athlete's Foot rt - Cellulitis, Adult rt Forms: - Medication Reconciliation Form rt - Antibiotic Education rt - Prescription Opioid Use rt - Patient Portal Instructions rt - Leadership Thank You Letter rt - Work release form bm8 Prescriptions: - Augmentin 875-125 mg Oral Tablet - take 1 tablet ORAL route every 12 hours for 10 days; 20 tablet; Refills: 0, rt Product Selection Permitted Signatures: Jimmie Robles MD MD rt LogdaFan marks RN RN tl4 Foster La RN RN 8
--- NOTE | 2024-02-17 19:40 | ER ---
Nurse's Notes [facility] Name: Brianda Zurita Age: 58 yrs Sex: Female : 1965 Arrival Date: 02/17/2024 Time: 19:08 Bed 6 Private MD: Diagnosis: Tinea pedis;Cellulitis to right fifth toe Presentation: 02/16 19:19 Chief complaint: Patient states: Pt states she developed a blister between right 4th tl4 and 5th toe that popped and started to spread. Pt being treated with antifungal meds prescribed by [facility]. Pt states area is getting worse and more painful. Coronavirus screen: At this time, the client does not indicate any symptoms associated with coronavirus-19. Ebola Screen: No symptoms or risks identified at this time. Initial Sepsis Screen: Does the patient meet any 2 criteria? No. Patient's initial sepsis screen is negative. Does the patient have a suspected source of infection? No. Patient's initial sepsis screen is negative. Risk Assessment: Do you want to hurt yourself or someone else? Patient reports no desire to harm self or others. Onset of symptoms was February 13, 2024. 19:19 Method Of Arrival: Ambulatory tl4 19:19 Acuity: MUSHTAQ 3 tl4 Triage Assessment: 19:24 General: Appears in no apparent distress. Behavior is calm, cooperative. Pain: tl4 Complains of pain in right foot. EENT: No signs and/or symptoms were reported regarding the EENT system. Neuro: Level of Consciousness is awake, alert, obeys commands, Oriented to person, place, time, situation. Cardiovascular: Capillary refill < 3 seconds Patient's skin is warm and dry. Respiratory: Airway is patent Respiratory effort is even, unlabored, Respiratory pattern is regular, symmetrical. GI: No signs and/or symptoms were reported involving the gastrointestinal system. : No signs and/or symptoms were reported regarding the genitourinary system. Derm: Wound noted right foot. Musculoskeletal: No signs and/or symptoms reported regarding the musculoskeletal system. Historical: - Allergies: 19:23 Azithromycin; tl4 19:23 Ciprofloxacin; tl4 19:23 Macrobid; tl4 19:23 Nitrofurantoin; tl4 19:23 ondansetron; tl4 - PMHx: 19:23 GERD; Uterine CA; tl4 - PSHx: 19:23 Cholecystectomy; hysterectomy; tl4 - Immunization history:: Adult Immunizations unknown. - Infectious Disease History:: Denies. - Social history:: Smoking status: Patient reports the use of cigarette tobacco products, smokes one-half pack cigarettes per day. - Family history:: not pertinent. Screenin:35 [facility] ED Fall Risk Assessment (Adult) History of falling in the last 3 months, bm8 including since admission No falls in past 3 months (0 pts) Confusion or Disorientation No (0 pts) Intoxicated or Sedated No (0 pts) Impaired Gait No (0 pts) Mobility Assist Device Used No (0 pt) Altered Elimination No (0 pt) Score/Fall Risk Level 0 - 2 = Low Risk Oriented to surroundings, Maintained a safe environment, Educated pt \T\ family on fall prevention, incl call for assistance when getting out of bed, Assessed \T\ reinforced patient's understanding of fall precautions, Hourly rounding (assess needs \T\ fall precautionary measures) done, Used ambulatory aids as needed (educated on \T\ assisted with), Used gait belt as appropriate. Abuse screen: Denies threats or abuse. Nutritional screening: No deficits noted. Tuberculosis screening: No symptoms or risk factors identified. Assessment: 19:34 General: Appears in no apparent distress. comfortable, Behavior is calm, cooperative, bm8 appropriate for age. Pain: Complains of pain in right foot Pain. 19:34 Neuro: No deficits noted. Cardiovascular: Denies chest pain, Capillary refill < 3 bm8 seconds Patient's skin is warm and dry. Respiratory: No deficits noted. Airway is patent Respiratory effort is even, unlabored, Respiratory pattern is regular, symmetrical. GI: No signs and/or symptoms were reported involving the gastrointestinal system. : No signs and/or symptoms were reported regarding the genitourinary system. EENT: No signs and/or symptoms were reported regarding the EENT system. Derm: Reports burning, itching, pain peeling, in between 4th and fifth toe. Vital Signs: 19:19 BP 129 / 94; Pulse 74; Resp 20; Temp 98.6(TE); Pulse Ox 100% on R/A; Weight 70.76 kg; tl4 Height 5 ft. 6 in. ; Pain 8/10; 19:19 Body Mass Index 25.18 (70.76 kg, 167.64 cm) tl4 19:19 Pain Scale: Adult 4 ED Course: 19:13 Patient arrived in ED. im 19:14 Jimmie Robles MD is Attending Physician. rt 19:23 Triage completed. tl4 19:25 Arm band placed on left wrist. tl4 19:33 Foster La, RN is Primary Nurse. bm8 19:35 Patient has correct armband on for positive identification. Bed in low position. Call bm8 light in reach. Side rails up X 1. Provided Education on: post er care. Client placed on continuous cardiac and pulse oximetry monitoring. NIBP monitoring applied. Pulse ox on. NIBP on. Door closed. Noise minimized. Pillow given. Verbal reassurance given. Head of bed elevated. 19:35 No provider procedures requiring assistance completed. Patient did not have IV access bm8 during this emergency room visit. Patient maintains SpO2 saturation greater than 95% on room air. Administered Medications: 19:44 Drug: Amoxicillin-Clavulanate PO 875 mg PO once Route: PO; bm8 19:44 Follow up: Response: Medication Administered at Departure bm8 Medication: 19:35 VIS not applicable for this client. bm8 Outcome: 19:40 Discharge ordered by . rt 19:45 Discharged to home ambulatory, bm8 19:45 Condition: stable 19:45 Discharge instructions given to patient, Instructed on discharge instructions, follow up and referral plans. medication usage, Demonstrated understanding of instructions, follow-up care, medications, Prescriptions given X 1, 19:47 Patient left the ED. bm8 Signatures: Jimmie Robles MD MD rt Saira De Oliveira Fan Echeverria RN RN 4 Foster La, RN RN bm8
[2024-02-17] MEDS ORDERED: AMOX/K CLAV 875 MG TAB ONE (19:42)
[2024-02-17 19:53] VITALS: BP 129/94; TEMP 98.6; O2SAT 100
== END 2024-02-17 19:47 | disposition home or self-care (01) ==
LOC: ER 19:08
DX: B35.3 Tinea pedis (principal); L03.031 Cellulitis of right toe
CPT/HCPCS: 82947; 99284

== ENCOUNTER 2025-01-25 03:47 | Emergency (ER) | payer SELFPAY ==
[2025-01-25 04:32] LABS: Hematocrit 38.0 % (36.0-45.0); Hemoglobin 12.8 g/dL (12.0-15.0); MCH 29.3 pg (27.0-35.0); MCHC 33.6 g/dL (32.0-36.0); MCV 87.2 fL (80-100); RBC Red Blood Cell Count 4.35 M/uL (3.86-4.86); White Blood Count 7.00 thou/uL (4.3-10.9)
[2025-01-25 04:33] LABS: Absolute Lymphocytes (CBC) 2.3 K/uL (0.7-4.9); MPV 8.8 fL (7.6-11.3); Nucleated RBC Absolute Count 0.0 (0-0); Nucleated Red Blood Cells % 0.2 % (0-0)
[2025-01-25 04:45] LABS: ALT/SGPT 30 U/L (13-56); Albumin 3.8 g/dL (3.4-5.0); Albumin/Globulin Ratio 1.0 (1.1-1.8); Alkaline Phosphatase 82 U/L (45-117); Anion Gap 7.9 mEq/L (5.0-15.0); BUN Blood Urea Nitrogen 18 mg/dL (7-18); Globulin 3.9 g/dL (2.3-3.5); Glucose Level 99 mg/dL (74-106); Potassium 3.9 mEq/L (3.5-5.1)
[2025-01-25 04:46] LABS: AST/SGOT < 10 U/L (15-37)
[2025-01-25] MEDS ORDERED: METHYLPREDNISOLONE 125 MG INJ ONE (04:50)
[2025-01-25] MEDS ORDERED: DIPHENHYDRAMINE 50 MG/ML VIAL ONE (04:51)
[2025-01-25] MEDS ORDERED: NA CHLORIDE 0.9% 1,000 ML ONE (04:51)
[2025-01-25] MEDS ORDERED: predniSONE 20 MG TAB ONE (04:51)
[2025-01-25] MEDS ORDERED: FAMOTIDINE 20 MG/2 ML VIAL IV ONE (04:51)
--- NOTE | 2025-01-25 05:09 | ER ---
Nurse's Notes [facility] Name: Brianda Zurita Age: 59 yrs Sex: Female : 1965 Arrival Date: 01/25/2025 Time: 03:47 Bed 19 Private MD: Diagnosis: Adverse effect of other drugs, medicaments and biological substances;Urticaria, unspecified Presentation: 01/25 04:04 Chief complaint: Patient states: Rash that started 30 minutes ago. Itching along side sd4 her abdomen and right arm. Coronavirus screen: At this time, unable to obtain information related to travel outside the [place] Ebola Screen: No symptoms or risks identified at this time. Initial Sepsis Screen: Does the patient meet any 2 criteria? No. Patient's initial sepsis screen is negative. Does the patient have a suspected source of infection? No. Patient's initial sepsis screen is negative. Risk Assessment: Do you want to hurt yourself or someone else? Patient reports no desire to harm self or others. Onset of symptoms was January 25, 2025 at 03:30. 04:04 Method Of Arrival: Ambulatory sd4 04:04 Acuity: MUSHTAQ 3 sd4 Triage Assessment: 04:12 General: Appears in no apparent distress. comfortable, Behavior is calm, cooperative. sd4 Pain: Denies pain. EENT: No deficits noted. No signs and/or symptoms were reported regarding the EENT system. Neuro: No deficits noted. Level of Consciousness is awake, alert, obeys commands. Cardiovascular: No deficits noted. Capillary refill Pulses are all present. Respiratory: No deficits noted. Airway is patent Trachea midline Respiratory effort is even, unlabored, Respiratory pattern is regular. GI: No deficits noted. No signs and/or symptoms were reported involving the gastrointestinal system. : No deficits noted. No signs and/or symptoms were reported regarding the genitourinary system. Derm: Skin is intact, Skin is dry, Skin is pink, warm \T\ dry. normal, Skin temperature is warm Rash noted that is itchy, red. Historical: - Allergies: 04:12 Azithromycin; sd4 04:12 Macrobid; sd4 04:12 Nitrofurantoin; sd4 04:12 Ciprofloxacin; sd4 04:12 ondansetron; sd4 - PMHx: 04:12 GERD; Uterine CA; sd4 - PSHx: 04:12 Cholecystectomy; hysterectomy; sd4 - Immunization history:: Adult Immunizations unknown. - Infectious Disease History:: Denies. - Family history:: not pertinent. - Social history:: Smoking status: . Screenin:38 [facility] ED Fall Risk Assessment (Adult) History of falling in the last 3 months, sd4 including since admission No falls in past 3 months (0 pts) Confusion or Disorientation No (0 pts) Intoxicated or Sedated No (0 pts) Impaired Gait No (0 pts) Mobility Assist Device Used No (0 pt) Altered Elimination No (0 pt) Score/Fall Risk Level 0 - 2 = Low Risk Oriented to surroundings, Maintained a safe environment, Educated pt \T\ family on fall prevention, incl call for assistance when getting out of bed, Hourly rounding (assess needs \T\ fall precautionary measures) done. Abuse screen: Denies threats or abuse. Denies injuries from another. Nutritional screening: No deficits noted. Tuberculosis screening: No symptoms or risk factors identified. Assessment: 04:38 Reassessment: No changes from previously documented assessment. SEE TRIAGE . sd4 Vital Signs: 04:04 BP 156 / 69; Pulse 67; Resp 18; Temp 98.2; Pulse Ox 97% on R/A; Pain 0/10; sd4 04:37 BP 156 / 69; Pulse 67; Resp 18; Temp 98.2(O); Pulse Ox 97% on R/A; Pain 0/10; sd4 06:25 BP 133 / 75; Pulse 57; Resp 16; Pulse Ox 100% on R/A; sd4 04:04 Pain Scale: Adult sd4 04:37 Pain Scale: Adult sd4 ED Course: 03:49 Patient arrived in ED. jj6 03:52 Hemant Morgan MD is Attending Physician. staci 03:54 Xuan Kearney, NUVIA is Primary Nurse. sd4 04:12 Triage completed. sd4 04:12 Arm band placed on right wrist. sd4 04:26 CMP Sent. oe 04:26 CBC with Diff Sent. oe 04:27 Inserted saline lock: 22 gauge in left antecubital area, using aseptic technique. Blood oe collected. Flushed with 10 mL NS. 04:38 No provider procedures requiring assistance completed. Inserted saline lock:. sd4 04:38 Fall risk band placed. Bed in low position. Call light in reach. Side rails up X 1. sd4 Provided Education on: Rash. 06:25 IV discontinued, intact, bleeding controlled, No redness/swelling at site. Pressure sd4 dressing applied. Administered Medications: 05:08 Drug: NS 0.9% IV 1000 ml IV at 1000 ml once; to be given as a bolus over 60 minutes sd4 Route: IV; Rate: 1000 ml; Site: left antecubital; 06:28 Follow up: IV Status: Infusion continued sd4 05:08 Drug: MethylPrednisoLONE IVP 125 mg IVP once Route: IVP; Site: left antecubital; sd4 06:28 Follow up: Response: No adverse reaction sd4 05:08 Drug: predniSONE PO 60 mg PO once Route: PO; sd4 06:28 Follow up: Response: No adverse reaction sd4 05:08 Drug: diphenhydrAMINE IVP 50 mg IVP once Route: IVP; Site: left antecubital; sd4 06:27 Follow up: Response: No adverse reaction sd4 05:08 Drug: Famotidine IVP 40 mg IVP once; dilute with 10 mL 0.9% NaCl; give over 2 minutes sd4 Route: IVP; Site: left antecubital; 06:27 Follow up: Response: No adverse reaction sd4 Medication: 04:38 VIS not applicable for this client. sd4 Outcome: 05:08 Discharge ordered by . staci 06:25 Discharged to home ambulatory, sd4 06:25 Condition: stable 06:25 Discharge instructions given to patient, Instructed on discharge instructions, follow up and referral plans. medication usage, Demonstrated understanding of instructions, follow-up care, medications, Prescriptions given X 4, 06:29 Patient left the ED. sd4 Signatures: Hemant Morgan MD MD cha Espinosa, Orlando oe Jeffries, Jennifer jj6 Xuan Kearney, RN RN sd4
--- NOTE | 2025-01-25 05:09 | EDPHYS ---
Physician Documentation [facility] Name: Brianda Zurita Age: 59 yrs Sex: Female : 1965 Arrival Date: 01/25/2025 Time: 03:47 Bed 19 Private MD: ED Physician Hemant Morgan HPI: 01/25 04:10 This 59 yrs old Female presents to ER via Unassigned with complaints of Rash. staci 04:10 The patient's rash thought to be caused by Dermatitis. The rash is located on the back, staci chest and abdomen. The rash can be described as confluent, erythematous, papular, raised. Onset: The symptoms/episode began/occurred just prior to arrival. Associated signs and symptoms: Pertinent positives: itching. Severity of symptoms: At their worst the symptoms were moderate in the emergency department the symptoms are unchanged. Treatment given at home: none. The patient has not experienced similar symptoms in the past. Historical: - Allergies: 04:12 Azithromycin; sd4 04:12 Macrobid; sd4 04:12 Nitrofurantoin; sd4 04:12 Ciprofloxacin; sd4 04:12 ondansetron; sd4 - PMHx: 04:12 GERD; Uterine CA; sd4 - PSHx: 04:12 Cholecystectomy; hysterectomy; sd4 - Immunization history:: Adult Immunizations unknown. - Infectious Disease History:: Denies. - Family history:: not pertinent. - Social history:: Smoking status: . ROS: 04:10 Constitutional: Negative for fever, chills, and weight loss, Eyes: Negative for injury, staci pain, redness, and discharge, ENT: Negative for injury, pain, and discharge, Neck: Negative for injury, pain, and swelling, Cardiovascular: Negative for chest pain, palpitations, and edema, Respiratory: Negative for shortness of breath, cough, wheezing, and pleuritic chest pain, Abdomen/GI: Negative for abdominal pain, nausea, vomiting, diarrhea, and constipation, Back: Negative for injury and pain, : Negative for injury, bleeding, discharge, and swelling, MS/Extremity: Negative for injury and deformity, Neuro: Negative for headache, weakness, numbness, tingling, and seizure, Psych: Negative for depression, anxiety, suicide ideation, homicidal ideation, and hallucinations, Allergy/Immunology: Negative for hives, rash, and allergies, Endocrine: Negative for neck swelling, polydipsia, polyuria, polyphagia, and marked weight changes, Hematologic/Lymphatic: Negative for swollen nodes, abnormal bleeding, and unusual bruising, 04:10 Skin: Positive for rash, of the back and abdomen, Exam: 04:10 Constitutional: This is a well developed, well nourished patient who is awake, alert, staci and in no acute distress. Head/Face: Normocephalic, atraumatic. Eyes: Pupils equal round and reactive to light, extra-ocular motions intact. Lids and lashes normal. Conjunctiva and sclera are non-icteric and not injected. Cornea within normal limits. Periorbital areas with no swelling, redness, or edema. ENT: Nares patent. No nasal discharge, no septal abnormalities noted. Tympanic membranes are normal and external auditory canals are clear. Oropharynx with no redness, swelling, or masses, exudates, or evidence of obstruction, uvula midline. Mucous membranes moist. Neck: Trachea midline, no thyromegaly or masses palpated, and no cervical lymphadenopathy. Supple, full range of motion without nuchal rigidity, or vertebral point tenderness. No Meningismus. Chest/axilla: Normal chest wall appearance and motion. Nontender with no deformity. No lesions are appreciated. Cardiovascular: Regular rate and rhythm with a normal S1 and S2. No gallops, murmurs, or rubs. Normal PMI, no JVD. No pulse deficits. Respiratory: Lungs have equal breath sounds bilaterally, clear to auscultation and percussion. No rales, rhonchi or wheezes noted. No increased work of breathing, no retractions or nasal flaring. Abdomen/GI: Soft, non-tender, with normal bowel sounds. No distension or tympany. No guarding or rebound. No evidence of tenderness throughout. Back: No spinal tenderness. No costovertebral tenderness. Full range of motion. Female : Normal external genitalia. MS/ Extremity: Pulses equal, no cyanosis. Neurovascular intact. Full, normal range of motion., bilateral aka Neuro: Awake and alert, GCS 15, oriented to person, place, time, and situation. Cranial nerves II-XII grossly intact. Motor strength 5/5 in all extremities. Sensory grossly intact. Cerebellar exam normal. Normal gait. Psych: Awake, alert, with orientation to person, place and time. Behavior, mood, and affect are within normal limits. 04:10 Skin: rash a moderate rash is noted, rash can be described as erythematous, macular, raised, on the back and chest, Vital Signs: 04:04 BP 156 / 69; Pulse 67; Resp 18; Temp 98.2; Pulse Ox 97% on R/A; Pain 0/10; sd4 04:37 BP 156 / 69; Pulse 67; Resp 18; Temp 98.2(O); Pulse Ox 97% on R/A; Pain 0/10; sd4 06:25 BP 133 / 75; Pulse 57; Resp 16; Pulse Ox 100% on R/A; sd4 04:04 Pain Scale: Adult sd4 04:37 Pain Scale: Adult sd4 MDM: 03:52 Medical Screening Exam initiated [facility] 04:13 Differential diagnosis: allergic reaction. Data reviewed: vital signs, nurses notes, [facility] lab test result(s), CBC, electrolytes, hepatic panel. Consideration of Admission/Observation Escalation of care including admission/observation considered. I considered the following discharge prescriptions or medication management in the emergency department Medications were administered in the Emergency Department. See MAR. Test considered but Not performed: X-ray: no cxr. Care significantly affected by the following chronic conditions: none. 01/25 04:09 Order name: CBC with Diff; Complete Time: 04:39 [facility] 01/25 04:09 Order name: CMP; Complete Time: 05:08 [facility] 01/25 04:09 Order name: UA Rfx Nathan Cult if indicated [facility] Administered Medications: 05:08 Drug: NS 0.9% IV 1000 ml IV at 1000 ml once; to be given as a bolus over 60 minutes 4 Route: IV; Rate: 1000 ml; Site: left antecubital; 06:28 Follow up: IV Status: Infusion continued 05:08 Drug: MethylPrednisoLONE IVP 125 mg IVP once Route: IVP; Site: left antecubital; sd4 06:28 Follow up: Response: No adverse reaction 05:08 Drug: predniSONE PO 60 mg PO once Route: PO; sd4 06:28 Follow up: Response: No adverse reaction 4 05:08 Drug: diphenhydrAMINE IVP 50 mg IVP once Route: IVP; Site: left antecubital; sd4 06:27 Follow up: Response: No adverse reaction sd4 05:08 Drug: Famotidine IVP 40 mg IVP once; dilute with 10 mL 0.9% NaCl; give over 2 minutes sd4 Route: IVP; Site: left antecubital; 06:27 Follow up: Response: No adverse reaction sd4 Disposition Summary: 01/25/25 05:08 Discharge Ordered Notes: Location: Home [facility] Problem: new staci Symptoms: have improved staci Condition: Stable staci Diagnosis - Adverse effect of other drugs, medicaments and biological substances staci - Urticaria, unspecified staci Followup: staci - With: Private Physician - When: 2 - 3 days - Reason: Recheck today's complaints, Re-evaluation by your physician Discharge Instructions: - Discharge Summary Sheet staci - Hives staci - Rash, Adult staci - Rash, Adult, [id number] staci - Hives, [id number] staci Forms: - Medication Reconciliation Form [facility] - Antibiotic Education staci - Prescription Opioid Use [facility] - Patient Portal Instructions [facility] - Leadership Thank You Letter [facility] Prescriptions: - EpiPen 0.3 mg/0.3 mL Injection Auto-Injector - administer 0.3 milligram INTRAMUSCULAR route every 5 to 15 minutes as needed [facility] for hypersensitivity reaction; do not exceed 3 doses per episode; 2 Pack; Refills: 0, Product Selection Permitted - Pepcid 40 mg Oral tablet - take 1 tablet ORAL route 2 times per day; 20 tablet; Refills: 0, Product [facility] Selection Permitted - Benadryl 25 mg Oral capsule - take 2 capsule ORAL route every 6 hours As needed; 30 tablet; Refills: 0, [facility] Product Selection Permitted - Prednisone 20 mg Oral Tablet - take 2 tablets ORAL route once daily for 5 days; 10 tablet; Refills: 0, Product [facility] Selection Permitted Signatures: Dispatcher [employer] Hemant Deal MD MD cha Durand, Shamara, RN RN sd4
[2025-01-25 06:04] LABS: Sqamous Epithelial <5 /HPF (None Seen); Urine Culture Reflex Order NOT NEEDED; Urine Microscopic Reflex YN ORDER UMIC
[2025-01-25 06:44] VITALS: TEMP 98.2
[2025-01-25 06:48] VITALS: BP 133/75; O2SAT 100
== END 2025-01-25 06:29 | disposition home or self-care (01) ==
LOC: ER 03:47
DX: L50.9 Urticaria, unspecified (principal); T50.995A Adverse effect of other drugs, medicaments and biological substances, initial encounter
CPT/HCPCS: 36415; 80053; 81001; 85025; 96361; 96374; 96375; 99284; J1200; J2919; J7030; J7512

== ENCOUNTER 2025-03-18 10:42 | Emergency (ER) | payer SELFPAY ==
--- NOTE | 2025-03-18 11:01 | EDPHYS ---
Physician Documentation [facility] Name: Brianda Zurita Age: 59 yrs Sex: Female : 1965 Arrival Date: 03/18/2025 Time: 10:42 Bed IW4 Private MD: ED Physician Hemant Morgan HPI: 03/18 10:59 This 59 yrs old Female presents to ER via Unassigned with complaints of Rash. kb 10:59 Patient is a 59-year-old female who presents for hives that started on Sunday. States kb she has been taking prednisone and Benadryl which has improved the symptoms but she is concerned that she has scabies because a dog in her house had scabies. Reports itching.. Historical: - Allergies: 11:05 Azithromycin; ll1 11:05 Ciprofloxacin; ll1 11:05 Macrobid; ll1 11:05 Nitrofurantoin; ll1 11:05 ondansetron; ll1 - PMHx: 11:05 GERD; Uterine CA; ll1 - PSHx: 11:05 Cholecystectomy; hysterectomy; ll1 - Immunization history:: Adult Immunizations up to date. - Infectious Disease History:: Denies. - Social history:: Smoking status: Patient reports the use of cigarette tobacco products, smokes one-half pack cigarettes per day. ROS: 10:59 Constitutional: As per HPI kb Exam: 10:59 Constitutional: This is a well developed, well nourished patient who is awake, alert, kb and in no acute distress. Head/Face: Normocephalic, atraumatic. ENT: Moist Mucous membranes Respiratory: Respirations even and unlabored. No increased work of breathing. Talking in full sentences MS/ Extremity: Pulses equal, no cyanosis. Neurovascular intact. Full, normal range of motion. Neuro: Awake and alert, GCS 15, oriented to person, place, time, and situation. 10:59 Skin: consistent with urticaria, on the abdomen, Vital Signs: 11:06 BP 165 / 90; Pulse 85; Resp 16; Temp 98.2; Pulse Ox 100% ; Pain 0/10; ll1 11:06 Pain Scale: Adult ll1 MDM: 10:45 Medical Screening Exam initiated kb 11:00 Differential diagnosis: impetigo, allergic reaction, parasite infection. Data reviewed: vital signs, nurses notes. Counseling: I had a detailed discussion with the patient and/or guardian regarding the historical points, exam findings, and any diagnostic results supporting the discharge/admit diagnosis, the need for outpatient follow up, a family practitioner, to return to the emergency department if symptoms worsen or persist or if there are any questions or concerns that arise at home. Administered Medications: No medications were administered Disposition: 03/19 07:29 Co-signature as Attending Physician, Hemant Morgan MD I agree with the assessment and staci plan of care. Disposition Summary: 03/18/25 11:00 Discharge Ordered Notes: Location: Home kb Condition: Stable kb Diagnosis - Urticaria, unspecified kb Followup: kb - With: Emergency Department - When: As needed - Reason: Worsening of condition Followup: kb - With: Private Physician - When: 2 - 3 days - Reason: Recheck today's complaints, Continuance of care, Re-evaluation by your physician Discharge Instructions: - Discharge Summary Sheet kb - Hives, [id number] kb Forms: - Medication Reconciliation Form kb - Antibiotic Education kb - Prescription Opioid Use kb - Patient Portal Instructions kb - Leadership Thank You Letter kb Prescriptions: - Elimite 5 % Topical Cream - apply 1 application TOPICAL route one time Wash after 12 hours.; 60 gram; kb Refills: 0, Product Selection Permitted - Pepcid 20 mg Oral Tablet - take 1 tablet ORAL route every 12 hours for 5 days; 10 tablet; Refills: 0, kb Product Selection Permitted Signatures: Clau [place], CHEMISTRY DEPARTMENT CHAIR-C CHEMISTRY DEPARTMENT CHAIR-Hemant Solorzano MD MD cha Lewis, Lynsay, RN RN ll1
--- NOTE | 2025-03-18 11:08 | ER ---
Nurse's Notes [facility] Name: Brianda Zurita Age: 59 yrs Sex: Female : 1965 Arrival Date: 03/18/2025 Time: 10:42 Bed IW4 Private MD: Diagnosis: Urticaria, unspecified Presentation: 03/18 11:06 Chief complaint: Patient states: Rash with hives to trunk. Coronavirus screen: Client ll1 denies travel out of the [place] in the last 14 days. At this time, the client does not indicate any symptoms associated with coronavirus-19. Ebola Screen: Patient denies travel to an Ebola-affected area in the 21 days before illness onset. Initial Sepsis Screen: Does the patient meet any 2 criteria? No. Patient's initial sepsis screen is negative. Does the patient have a suspected source of infection? No. Patient's initial sepsis screen is negative. Risk Assessment: Do you want to hurt yourself or someone else? Patient reports no desire to harm self or others. Onset of symptoms was March 15, 2025. 11:06 Method Of Arrival: Ambulatory ll1 11:06 Acuity: MUSHTAQ 5 ll1 Triage Assessment: 11:06 General: Appears in no apparent distress. Behavior is calm, cooperative, appropriate ll1 for age. Pain: Denies pain. Derm: Reports rash with itching to abdominal area. Historical: - Allergies: 11:05 Azithromycin; ll1 11:05 Ciprofloxacin; ll1 11:05 Macrobid; ll1 11:05 Nitrofurantoin; ll1 11:05 ondansetron; ll1 - PMHx: 11:05 GERD; Uterine CA; ll1 - PSHx: 11:05 Cholecystectomy; hysterectomy; ll1 - Immunization history:: Adult Immunizations up to date. - Infectious Disease History:: Denies. - Social history:: Smoking status: Patient reports the use of cigarette tobacco products, smokes one-half pack cigarettes per day. Screenin:07 [facility] ED Fall Risk Assessment (Adult) History of falling in the last 3 months, ll1 including since admission No falls in past 3 months (0 pts) Confusion or Disorientation No (0 pts) Intoxicated or Sedated No (0 pts) Impaired Gait No (0 pts) Mobility Assist Device Used No (0 pt) Altered Elimination No (0 pt) Score/Fall Risk Level 0 - 2 = Low Risk Maintained a safe environment, Hourly rounding (assess needs \T\ fall precautionary measures) done. Abuse screen: Denies threats or abuse. Nutritional screening: No deficits noted. Tuberculosis screening: No symptoms or risk factors identified. Assessment: 11:07 Reassessment: No changes from previously documented assessment. Patient and/or family ll1 updated on plan of care and expected duration. Pain level reassessed. Patient is alert, oriented x 3, equal unlabored respirations, skin warm/dry/pink. Vital Signs: 11:06 BP 165 / 90; Pulse 85; Resp 16; Temp 98.2; Pulse Ox 100% ; Pain 0/10; ll1 11:06 Pain Scale: Adult ll1 ED Course: 10:45 Patient arrived in ED. im 10:45 Clau Madera FNP-C [facility]. kb 10:45 Hemant Morgan MD is Attending Physician. kb 11:06 Arm band placed on Patient placed in an exam room, on a stretcher. ll1 11:07 Triage completed. ll1 11:07 Patient has correct armband on for positive identification. Provided Education on: ER ll1 procedures and process. 11:07 No provider procedures requiring assistance completed. Patient did not have IV access ll1 during this emergency room visit. Administered Medications: No medications were administered Medication: 12:59 VIS not applicable for this client. ll1 Outcome: 11:00 Discharge ordered by . kb 11:07 Patient left the ED. ll1 11:07 Discharged to home ambulatory, ll1 11:07 Condition: stable 11:07 Discharge instructions given to patient, Instructed on discharge instructions, follow up and referral plans. medication usage, Demonstrated understanding of instructions, follow-up care, medications, Prescriptions given X 2, Signatures: Clau Madera FNP-C FNP-Ckb Lewis, Lynsay, RN RN ll1 Saira De Oliveira im
[2025-03-18 11:17] VITALS: BP 165/90; TEMP 98.2; O2SAT 100
== END 2025-03-18 11:07 | disposition home or self-care (01) ==
LOC: ER 10:42
DX: L50.9 Urticaria, unspecified (principal)
CPT/HCPCS: 99283

== ENCOUNTER 2025-03-27 08:30 | Emergency (ER) | payer SELFPAY ==
--- NOTE | 2025-03-27 08:50 | ER ---
Nurse's Notes [facility] Name: Brianda Zurita Age: 59 yrs Sex: Female : 1965 Arrival Date: 03/27/2025 Time: 08:30 Bed 2 Private MD: Diagnosis: Cellulitis of back [any part except buttock] Presentation: 03/27 08:45 Chief complaint: Patient states: possible insect bite to R low back on Sunday that is ss getting worse. Coronavirus screen: Client denies travel out of the [place] in the last 14 days. Ebola Screen: Patient denies exposure to infectious person. Patient denies travel to an Ebola-affected area in the 21 days before illness onset. Initial Sepsis Screen: Does the patient meet any 2 criteria? No. Patient's initial sepsis screen is negative. Does the patient have a suspected source of infection? No. Patient's initial sepsis screen is negative. Risk Assessment: Do you want to hurt yourself or someone else? Patient reports no desire to harm self or others. Onset of symptoms was March 21, 2025. 08:45 Method Of Arrival: Ambulatory ss 08:45 Acuity: MUSHTAQ 4 ss Triage Assessment: 09:02 Bite description: bite sustained to right low back by an unknown animal, animal ap3 information: vaccination(s) is not applicable. General: Appears in no apparent distress. Behavior is calm, cooperative, appropriate for age. Pain: Complains of pain in right low back. Historical: - Allergies: 08:48 Azithromycin; ss 08:48 Ciprofloxacin; ss 08:48 Macrobid; ss 08:48 Nitrofurantoin; ss 08:48 ondansetron; ss - PMHx: 08:48 GERD; Uterine CA; ss - PSHx: 08:48 Cholecystectomy; hysterectomy; ss - Immunization history:: Adult Immunizations unknown. - Infectious Disease History:: Denies. - Social history:: Smoking status: Patient reports the use of cigarette tobacco products. Screenin:01 [facility] ED Fall Risk Assessment (Adult) History of falling in the last 3 months, ap3 including since admission No falls in past 3 months (0 pts) Confusion or Disorientation No (0 pts) Intoxicated or Sedated No (0 pts) Impaired Gait No (0 pts) Mobility Assist Device Used No (0 pt) Altered Elimination No (0 pt) Score/Fall Risk Level 0 - 2 = Low Risk Oriented to surroundings, Maintained a safe environment, Educated pt \T\ family on fall prevention, incl call for assistance when getting out of bed, Assessed \T\ reinforced patient's understanding of fall precautions, Hourly rounding (assess needs \T\ fall precautionary measures) done, Used ambulatory aids as needed (educated on \T\ assisted with). Abuse screen: Denies threats or abuse. Nutritional screening: No deficits noted. Tuberculosis screening: No symptoms or risk factors identified. Assessment: 08:39 General: Appears comfortable, Behavior is calm, cooperative. Pain: Denies pain. Neuro: aa5 Level of Consciousness is awake, alert, obeys commands, Oriented to person, place, time, situation. Cardiovascular: Patient's skin is warm and dry. Respiratory: Airway is patent Respiratory effort is even, unlabored, Respiratory pattern is regular, symmetrical. GI: No signs and/or symptoms were reported involving the gastrointestinal system. : No signs and/or symptoms were reported regarding the genitourinary system. EENT: No signs and/or symptoms were reported regarding the EENT system. Derm: Skin wound to right lower back that is smaller than dime sized and has scabbed over, surrounding redness to site, pt reports itching. Skin is pink, warm \T\ dry. Musculoskeletal: Range of motion: intact in all extremities. Vital Signs: 08:45 BP 180 / 91; Pulse 89; Resp 16; Temp 98.6(O); Pulse Ox 100% on R/A; Pain 6/10; ss 08:47 Weight 70.31 kg (R); Height 5 ft. 6 in. (R); aa5 08:47 Body Mass Index 25.02 (70.31 kg, 167.64 cm) aa5 08:45 Pain Scale: Adult ss ED Course: 08:33 Patient arrived in ED. im 08:34 Harjeet Dan FNP-C is PHCP. dr5 08:34 Marie Pierre MD is Attending Physician. dr5 08:43 Latasha Londono, NUVIA is Primary Nurse. aa5 08:48 Triage completed. ss 08:48 Arm band placed on right wrist. ss 09:02 No provider procedures requiring assistance completed. Patient did not have IV access ap3 during this emergency room visit. 09:03 Patient has correct armband on for positive identification. Provided Education on: ap3 discharge isntructions. Administered Medications: No medications were administered Medication: :03 VIS not applicable for this client. ap3 Outcome: 08:49 Discharge ordered by . dr5 09:03 Discharged to home ambulatory, ap3 09:03 Condition: good :03 Discharge instructions given to patient, Instructed on discharge instructions, follow up and referral plans. medication usage, Demonstrated understanding of instructions, follow-up care, medications, Prescriptions given X 2, :03 Patient left the ED. ap3 Signatures: Latasha Londono, RN RN aa5 Anika Younger RN RN ss Kristin Prater RN RN ap3 Saira De Oliveira Dustin, ARMORING MACHINE OPERATOR-C ARMORING MACHINE OPERATOR-Cdr5
--- NOTE | 2025-03-27 08:50 | EDPHYS ---
Physician Documentation [facility] Name: Brianda Zurita Age: 59 yrs Sex: Female : 1965 Arrival Date: 03/27/2025 Time: 08:30 Bed 2 Private MD: ED Physician Marie Pierre HPI: 03/27 08:56 This 59 yrs old Female presents to ER via Ambulatory with complaints of Insect dr5 Bite. 08:56 Onset: The symptoms/episode began/occurred 6 day(s) ago. Patient is a 59-year-old dr5 female with history of GERD and previous uterine cancer coming in with cellulitis and redness to right lower back that started 6 days ago. Patient reports she took 1 dose of Benadryl a couple days ago with mild relief. Patient states she thinks it might be a spider bite but did not see any insect.. Historical: - Allergies: 08:48 Azithromycin; ss 08:48 Ciprofloxacin; ss 08:48 Macrobid; ss 08:48 Nitrofurantoin; ss 08:48 ondansetron; ss - PMHx: 08:48 GERD; Uterine CA; ss - PSHx: 08:48 Cholecystectomy; hysterectomy; ss - Immunization history:: Adult Immunizations unknown. - Infectious Disease History:: Denies. - Social history:: Smoking status: Patient reports the use of cigarette tobacco products. ROS: 09:07 Constitutional: as per hpi dr5 Exam: 09:07 Constitutional: This is a well developed, well nourished patient who is awake, alert, dr5 and in no acute distress. Head/Face: Normocephalic, atraumatic. Eyes: Pupils equal round and reactive to light, extra-ocular motions intact. Lids and lashes normal. Conjunctiva and sclera are non-icteric and not injected. Cornea within normal limits. Periorbital areas with no swelling, redness, or edema. Neck: Trachea midline, no thyromegaly or masses palpated, and no cervical lymphadenopathy. Supple, full range of motion without nuchal rigidity, or vertebral point tenderness. No Meningismus. Chest/axilla: Normal chest wall appearance and motion. Nontender with no deformity. No lesions are appreciated. Cardiovascular: Regular rate and rhythm with a normal S1 and S2. Normal PMI, no JVD. No pulse deficits. Respiratory: Lungs have equal breath sounds bilaterally, clear to auscultation. No rales, rhonchi or wheezes noted. No increased work of breathing, no retractions or nasal flaring. Back: No spinal tenderness. No costovertebral tenderness. Full range of motion. MS/ Extremity: Pulses equal, no cyanosis. Neurovascular intact. Full, normal range of motion. Neuro: Awake and alert, GCS 15, oriented to person, place, time, and situation. Cranial nerves II-XII grossly intact. Motor strength 5/5 in all extremities. Sensory grossly intact. Cerebellar exam normal. Normal gait. 09:07 Skin: Appearance: normal except for affected area, cellulitis, that is mild, on the right low back, induration, is not appreciated, Vital Signs: 08:45 BP 180 / 91; Pulse 89; Resp 16; Temp 98.6(O); Pulse Ox 100% on R/A; Pain 6/10; ss 08:47 Weight 70.31 kg (R); Height 5 ft. 6 in. (R); aa5 08:47 Body Mass Index 25.02 (70.31 kg, 167.64 cm) aa5 08:45 Pain Scale: Adult ss MDM: 08:34 Medical Screening Exam initiated dr5 09:07 Differential diagnosis: abrasion, contusion, sprain, strain, Cellulitis, Abscess. Data dr5 reviewed: vital signs, nurses notes. I considered the following discharge prescriptions or medication management in the emergency department I discussed and recommended Over The Counter medications. Test considered but Not performed: Labs: Labs considered but not completed due to patient having localized cellulitis. External Records Reviewed:. Care significantly affected by the following chronic conditions: GERD, uterine cancer. Care significantly affected by the following Social Determinants of Health: Poor access to healthcare and/or lack of insurance, Poor access to transportation, Problems related to employment. Counseling: I had a detailed discussion with the patient and/or guardian regarding the historical points, exam findings, and any diagnostic results supporting the discharge/admit diagnosis, the presence of at least one elevated blood pressure reading (>120/80) during this emergency department visit, the need for outpatient follow up, for definitive care, a family practitioner, to return to the emergency department if symptoms worsen or persist or if there are any questions or concerns that arise at home. Special discussion: I discussed with the patient/guardian in detail that at this point there is no indication for admission to the hospital. It is understood, however, that if the symptoms persist or worsen the patient needs to return immediately for re-evaluation. Based on the history and exam findings, there is no indication for further emergent testing or inpatient evaluation. I discussed with the patient/guardian the need to see the primary care provider for further evaluation of the symptoms. ED course: No appreciable abscess noted on right lower back. Cellulitis noted and will cover with Keflex. Recommended Benadryl, Pepcid, and will give short course of steroids to help with itching. All questions answered. Strict ER precautions given. Recommended patient follow-up with primary care doctor as needed.. Administered Medications: No medications were administered Disposition Summary: 03/27/25 08:49 Discharge Ordered Notes: Location: Home dr5 Condition: Stable dr5 Diagnosis - Cellulitis of back [any part except buttock] dr5 Followup: dr5 - With: Emergency Department - When: As needed - Reason: Worsening of condition Followup: dr5 - With: Private Physician - When: 1 - 2 days - Reason: Recheck today's complaints, Continuance of care, Re-evaluation by your physician Discharge Instructions: - Discharge Summary Sheet dr5 - Cellulitis, Adult dr5 Forms: - Work release form dr5 - Medication Reconciliation Form dr5 - Antibiotic Education dr5 - Patient Portal Instructions dr5 - Leadership Thank You Letter dr5 Prescriptions: - Cephalexin 500 mg Oral Capsule - take 1 capsule ORAL route every 12 hours for 10 days; 20 capsule; Refills: 0, dr5 Product Selection Permitted - Prednisone 20 mg Oral Tablet - take 2 tablets ORAL route once daily for 5 days; 10 tablet; Refills: 0, Product dr5 Selection Permitted Signatures: Latasha Londono, RN RN aa5 Anika Younger RN RN ss Kristin Prater RN RN ap3 Harjeet Dan, MARKY-C CREDIT CARD INTERVIEWER-Cdr5
[2025-03-27 09:08] VITALS: BP 180/91; TEMP 98.6; O2SAT 100
== END 2025-03-27 09:03 | disposition home or self-care (01) ==
LOC: ER 08:30
DX: L03.312 Cellulitis of back [any part except buttock and flank] (principal)
CPT/HCPCS: 99283